=== PATIENT | male | born 1955 | race Caucasian/White ===

== ENCOUNTER 2017-06-02 23:36 | Inpatient (IN) | payer MEDICARE, MEDICAID ==
[~2017-06-02] VITALS: Ht 182.9 cm; Wt 83.5 kg
[2017-06-02] MEDS ORDERED: Cefepime HCl 1 GM in NS 55 ML IV STA (23:40)
[2017-06-02] MEDS ORDERED: Vancomycin 1 GM in NS 275 ML IV ONE (23:45)
[2017-06-02 23:50] VITALS: BP 122/72
[2017-06-02] MEDS ORDERED: DIDANOSINE ORAL (23:53)
[2017-06-02] MEDS ORDERED: FISH OIL CAP1000 MG ORAL (23:53)
[2017-06-03] VITALS (8 sets, daily range): BP systolic 120–144; BP diastolic 76–100
[2017-06-03] MEDS ORDERED: MULTIVITAMINS1 EAC2 ORAL (00:31)
[2017-06-03] MEDS ORDERED: METOPROLOL TART25 MG ORAL (00:31)
[2017-06-03] MEDS ORDERED: CRIXIVAN400 MG ORAL (00:31)
[2017-06-03] MEDS ORDERED: ATORVASTATIN CA80 MG ORAL (00:31)
[2017-06-03] MEDS ORDERED: GERI-TUSSI100 MG/5 M PO (00:31)
[2017-06-03] MEDS ORDERED: KAOPECTATE525 MG/15 PO (00:31)
[2017-06-03] MEDS ORDERED: PERIDEX15 ML MM (00:31)
[2017-06-03] MEDS ORDERED: SINEMET 25-1001 EAC1 ORAL (00:32)
[2017-06-03] MEDS ORDERED: NEVIRAPINE200 MG PO (00:32)
[2017-06-03] MEDS ORDERED: TYLENOL EXTRA500 MG ORAL (00:32)
[2017-06-03] MEDS ORDERED: ZYPREXA5 MG ORAL (00:32)
[2017-06-03 00:36] LABS: BASOPHILS % (AUTO) 0.6 % (0.0-2.0); HEMATOCRIT 55.9 % (42.0-52.0); LYMPHOCYTES % (AUTO) 20.4 % (20.0-45.0); MEAN CORPUSCULAR VOLUME 98 FL (80-99); MONOCYTES % (AUTO) 5.4 % (1.0-10.0); NEUTROPHILS % (AUTO) 72.6 % (45.0-75.0); PLATELET COUNT 205 K/UL (150-450); RED BLOOD COUNT 5.69 M/UL (4.70-6.10); RED CELL DISTRIBUTION WIDTH 11.9 % (11.6-14.8); WHITE BLOOD COUNT 16.3 K/UL (4.8-10.8)
[2017-06-03 00:50] LABS: APPEARANCE,URINE CLEAR; BILIRUBIN, URINE 1+ (NEGATIVE); GLUCOSE, URINE (UA) NEGATIVE (NEGATIVE); KETONES,URINE NEGATIVE (NEGATIVE); LEUKOCYTE ESTERASE ,URINE 1+ (NEGATIVE); NITRITE,URINE NEGATIVE (NEGATIVE); PH,URINE 5 (4.5-8.0); PROTEIN,URINE 2+ (NEGATIVE); UROBILINOGEN,URINE NORMAL MG/DL (0.0-1.0)
[2017-06-03 00:56] LABS: COLOR,URINE YELLOW
[2017-06-03 01:01] LABS: ALANINE AMINOTRANSFERASE 36 U/L (12-78); ALBUMIN 3.5 G/DL (3.4-5.0); ALBUMIN/GLOBULIN RATIO 0.8 (1.0-2.7); ALKALINE PHOSPHATASE 107 U/L (46-116); ANION GAP 16 mmol/L (5-15); ASPARTATE AMINO TRANSFERASE 30 U/L (15-37); BILIRUBIN,TOTAL 0.4 MG/DL (0.2-1.0); BLOOD UREA NITROGEN 39 mg/dL (7-18); CALCIUM 9.9 MG/DL (8.5-10.1); CARBON DIOXIDE 23 MMOL/L (21-32); CHLORIDE 122 MMOL/L (98-107); CREATINE KINASE 409 U/L (26-308); CREATININE 1.7 MG/DL (0.55-1.30); POTASSIUM 3.5 MMOL/L (3.5-5.1); SODIUM 160 MMOL/L (136-145)
[2017-06-03] MEDS ORDERED: Cefepime 1gm vial ONE (01:02)
--- NOTE | 2017-06-03 02:06 | Emergency Room Report ---
History of Present Illness General Chief Complaint: Abnormal Labs Source: Medical Record, EMS Present Illness HPI Patient sent from [facility] for abnormal labs and fever. Given tylenol before transport. Patient does not usually communicate (alleged prior stroke). HIV + on treatment. On Sinemet - Parkinson's. Depression/ psychosis in past. HTN, DM. No other history available. Allergies: Coded Allergies: No Known Allergies (Unverified , 06/02/17) Patient History Limited by: medical condition Past Medical History: see triage record, old chart reviewed Social History: Denies: smoking Social History Narrative [facility] Reviewed Nursing Documentation: PMH: Agreed, PSxH: Agreed Nursing Documentation-PMH Hx Hypertension: Yes - hyperlipidemia Hx Diabetes: Yes - type 2 dm Hx Cerebrovascular Accident: Yes Review of Systems All Other Systems: limited Physical Exam Vital Signs Date Time Temp Pulse Resp B/P (MAP) Pulse Ox O2 Delivery O2 Flow Rate FiO2 06/02/17 23:36 98.8 101 24 113/82 94 Room Air Sp02 EP Interpretation: reviewed, abnormal - low as interpreted by me General Appearance: no apparent distress, Chronically Ill Head: normocephalic Eyes: bilateral eye normal inspection, bilateral eye PERRL ENT: moist mucus membranes - some beige mucoid d/c in mouth and unable to exam fully due to patient fighting Neck: other - generalized stiffness but no clear meningismus Respiratory: lungs clear, normal breath sounds Cardiovascular #1: regular rate, rhythm Cardiovascular #2: 2+ radial (R) Gastrointestinal: normal inspection, normal bowel sounds, non tender, no mass, non-distended Musculoskeletal: back normal, normal range of motion Neurologic: alert, other - ebulic, atrophy bilaterally UE Psychiatric: depressed affect Skin: normal inspection, warm/dry Medical Decision Making Diagnostic Impression: Primary Impression: Fever unknown source Additional Impressions: Leukocytosis Qualified Codes: D72.829 - Elevated white blood cell count, unspecified Renal insufficiency Hypernatremia HIV (human immunodeficiency virus infection) ER Course Patient sent for fever. DDx: sepsis, UTI, pneumonia, oral source amongst others. Allegedly on treatment for HIV. Broad differential. Evaluation with BC, lactate, EKG, labs, CXR. Treated with IV hydration and antibiotics. Very complicated patient needing extensive work up and evaluation. Labs with leukocytosis. CXR L effusion. EKG without injury pattern. Renal insufficiency. Hypernatremia. Somewhat improved. Source of infection not clear. Admit Dr. Gonzalez (cares for Dr. Gill's patients). Laboratory Tests Test 06/03/17 00:09 White Blood Count 16.3 K/UL (4.8-10.8) H Red Blood Count 5.69 M/UL (4.70-6.10) Hemoglobin 18.0 G/DL (14.2-18.0) Hematocrit 55.9 % (42.0-52.0) H Mean Corpuscular Volume 98 FL (80-99) Mean Corpuscular Hemoglobin 32.8 PG (27.0-31.0) H Mean Corpuscular Hemoglobin Concent 33.4 G/DL (32.0-36.0) Red Cell Distribution Width 11.9 % (11.6-14.8) Platelet Count 205 K/UL (150-450) Mean Platelet Volume 6.8 FL (6.5-10.1) Neutrophils (%) (Auto) 72.6 % (45.0-75.0) Lymphocytes (%) (Auto) 20.4 % (20.0-45.0) Monocytes (%) (Auto) 5.4 % (1.0-10.0) Eosinophils (%) (Auto) 1.0 % (0.0-3.0) Basophils (%) (Auto) 0.6 % (0.0-2.0) Prothrombin Time 10.4 SEC (9.30-11.50) Prothrombin Time INR 1.0 (0.9-1.1) PTT 27 SEC (23-33) Urine Color Yellow Urine Appearance Clear Urine pH 5 (4.5-8.0) Urine Specific [place] 1.025 (1.005-1.035) Urine Protein 2+ (NEGATIVE) H Urine Glucose (UA) Negative (NEGATIVE) Urine Ketones Negative (NEGATIVE) Urine Occult Blood 2+ (NEGATIVE) H Urine Nitrite Negative (NEGATIVE) Urine Bilirubin 1+ (NEGATIVE) H Urine Ictotest Negative Urine Urobilinogen Normal MG/DL (0.0-1.0) Urine Leukocyte Esterase 1+ (NEGATIVE) H Urine RBC 2-4 /HPF (0 - 0) H Urine WBC 2-4 /HPF (0 - 0) Urine Squamous Epithelial Cells Few /LPF (NONE/OCC) Urine Bacteria Few /HPF (NONE) Sodium Level 160 MMOL/L (136-145) H Potassium Level 3.5 MMOL/L (3.5-5.1) Chloride Level 122 MMOL/L (98-107) H Carbon Dioxide Level 23 MMOL/L (21-32) Anion Gap 16 mmol/L (5-15) H Blood Urea Nitrogen 39 mg/dL (7-18) H Creatinine 1.7 MG/DL (0.55-1.30) H Estimate Glomerular Filtration Rate 40.8 mL/min (>60) Glucose Level 140 MG/DL (74-106) H Lactic Acid Level 1.70 mmol/L (0.66-2.22) Calcium Level 9.9 MG/DL (8.5-10.1) Total Bilirubin 0.4 MG/DL (0.2-1.0) Aspartate Amino Transferase (AST) 30 U/L (15-37) Alanine Aminotransferase (ALT) 36 U/L (12-78) Alkaline Phosphatase 107 U/L (46-116) Total Creatine Kinase 409 U/L (26-308) H Troponin I 0.000 ng/mL (0.000-0.056) Pro-B-Type Natriuretic Peptide 22 pg/mL (0-125) Total Protein 8.0 G/DL (6.4-8.2) Albumin 3.5 G/DL (3.4-5.0) Globulin 4.5 g/dL Albumin/Globulin Ratio 0.8 (1.0-2.7) L Lipase 186 U/L (73-393) EKG Diagnostic Results Rate: normal Rhythm: NSR ST Segments: no acute changes Rhythm Strip Diag. Results EP Interpretation: yes Rhythm: NSR, no PVC's, no ectopy Chest X-Ray Diagnostic Results Chest X-Ray Diagnostic Results : Chest X-Ray Ordered: Yes # of Views/Limited/Complete: 1 View Indication: Other Interpretation: no consolidation, no pneumothorax, other - L effusion Impression: Other Electronically Signed by: Rob Meier MD Last Vital Signs Date Time Temp Pulse Resp B/P (MAP) Pulse Ox O2 Delivery O2 Flow Rate FiO2 06/03/17 11:20 95 142/97 06/03/17 08:00 98.7 18 99 Room Air Status: improved Disposition: ADMITTED INPATIENT Condition: Serious Referrals: JACQUES VASQUEZ (PCP) Rob Meier M.D. Jun 03, 2017 02:06
[2017-06-03] MEDS ORDERED: Vancomycin 1gm inj IVPB ONE (02:43)
[2017-06-03] MEDS ORDERED: cefTRIAXone 1 GM in D5W 55 ML IVPB SCH (05:45)
[2017-06-03] MEDS ORDERED: guaiFENesin 100mg/5ml Liq ud ORAL PRN (05:45)
[2017-06-03] MEDS ORDERED: Acetaminophen 500mg (ES) tab ORAL PRN (05:45)
--- NOTE | 2017-06-03 06:31 | History and Physical Report ---
DATE OF ADMISSION: 06/03/2017 CHIEF COMPLAINT: Dehydration, hyponatremia, and leukocytosis. HISTORY OF PRESENT ILLNESS: The patient is a 62-year-old male. He has a history of human immunodeficiency virus, diabetes, essential hypertension, dementia, and history of psychosis. He was transferred from a correction facility with complaints of leukocytosis. On evaluation in the emergency room, the patient was noted to have a sodium of 160 and a white count of 16,000. He also had an elevated BUN and creatinine. The patient is unable to provide any history. He is mostly nonverbal at baseline. He was pancultured. He has been started on antibiotic therapy for possible sepsis. He is now admitted for further evaluation and care. PAST MEDICAL HISTORY: As above. PAST SURGICAL HISTORY: Unknown. CURRENT MEDICATIONS: Reconciled and reviewed. ALLERGIES: None. FAMILY HISTORY: Unknown. SOCIAL HISTORY: There is no known history of tobacco, ethanol, or drugs. The patient has an advance directive for Do Not Resuscitate. PHYSICAL EXAMINATION: VITAL SIGNS: Temperature 99.5, pulse 94, and blood pressure 122/72. GENERAL: The patient is a well-developed male, in no apparent distress. He is awake, but nonverbal. Does not follow commands. NECK: Supple. There is no lymphadenopathy. No jugular venous distention. HEART: Regular rate and rhythm. LUNGS: Clear to auscultation bilaterally. ABDOMEN: Soft, nontender, and nondistended. EXTREMITIES: Without clubbing, cyanosis, or edema. There is no rash noted. LABORATORY DATA: Show sodium 160, potassium 3.5, chloride 122, bicarbonate 23, BUN 39, and creatinine 1.7. White count 16,000, hemoglobin 18, and hematocrit 55. Coags are normal. UA was clear. Chest x-ray report was negative. ASSESSMENT: This is a pleasant unfortunate male admitted with complaints of dehydration, hyponatremia, leukocytosis rule out sepsis, and acute renal failure. He has a history of human immunodeficiency virus, hypertension, and diabetes. PLAN: IV hydration. Hypotonic fluids. Empiric antibiotic therapy. We will monitor CBC and renal function and electrolytes. Continue outpatient human immunodeficiency virus regimen. ID consultation will be obtained. Deandre Gonzalez M.D. DR: DARRYL JOB#: [id number] CC:
[2017-06-03] MEDS: Heparin 5000 units/ml inj SUBQ SCH ×2 (08:32→20:10)
[2017-06-03] MEDS: OLANZapine 2.5mg tab ORAL SCH ×2 (09:00→11:20)
[2017-06-03] MEDS: Metoprolol 25mg tab ORAL SCH ×3 (09:00→20:08)
--- NOTE | 2017-06-03 11:07 | Diagnostic Imaging Report ---
Indication: Cough Comparison: None A single view chest radiograph was obtained. Findings: Lung volumes are low but lungs are essentially clear. Heart a left lung apex is obscured. The heart is normal in size. Exam limited by rotation. Impression: No acute disease with limitations as described above
[2017-06-03] MEDS: Sinemet 25/100 tab ORAL SCH ×2 (11:20→18:23)
--- NOTE | 2017-06-03 11:57 | Diagnostic Imaging Report ---
APPROVED REPORT CPT Code: 14510 Present Symptoms Shortness of breath BILATERAL: Imaging reveals a patent deep venous system bilaterally. There is no evidence of thrombus within the femoral, popliteal or tibial segments. The greater saphenous veins are also within normal limits. Doppler indicates normal spontaneous flow within these segments.
--- NOTE | 2017-06-03 11:57 | Diagnostic Imaging Report ---
APPROVED REPORT CPT Code: 33143 Present Symptoms Shortness of breath BILATERAL: Imaging reveals a patent deep venous system bilaterally. There is no evidence of thrombus within the femoral, popliteal or tibial segments. The greater saphenous veins are also within normal limits. Doppler indicates normal spontaneous flow within these segments.
--- NOTE | 2017-06-03 11:57 | Diagnostic Imaging Report ---
APPROVED REPORT CPT Code: 61132 Present Symptoms Shortness of breath BILATERAL: Imaging reveals a patent deep venous system bilaterally. There is no evidence of thrombus within the femoral, popliteal or tibial segments. The greater saphenous veins are also within normal limits. Doppler indicates normal spontaneous flow within these segments.
--- NOTE | 2017-06-03 14:22 | Infectious Diseases Prog Note ---
Assessment/Plan Assessment/Plan Full consult dictated: A) 1) sepsis, ? asp pna/hcap pna, leukocytosis, fevers, michael, dehydration, hypernatremia 2) hiv, ? cd4/vl 3) Parkinson's, dysphagia, dementia, htn, psychosis, aphasia, dm, depression , hyperlipidemia 4) aspiration risk 5) allergies - nka, sh-negative, mar noted, notes and records reviewed 6) d/w RN P) 1) vancomycin, zosyn 2) check cultures, labs, chest x-ray, cd4 3) anti-retrovirals - indinavir, ddi, nevirapine when all available 4) continue treatment per primary and consultants 5) orders entered and noted 6) thank you Subjective Allergies: Coded Allergies: No Known Allergies (Unverified , 06/02/17) Objective Vital Signs Last 24 Hour Vital Signs Date Time Temp Pulse Resp B/P (MAP) Pulse Ox O2 Delivery O2 Flow Rate FiO2 06/03/17 11:20 95 142/97 06/03/17 08:00 98.7 95 18 142/97 99 Room Air 06/03/17 05:46 98.1 96 20 144/98 93 Room Air 06/03/17 03:36 97.1 105 20 135/100 96 Room Air 06/03/17 03:10 98.6 94 20 125/76 99 Room Air 06/03/17 02:50 98.6 94 20 125/76 99 Room Air 06/03/17 02:15 98.7 88 18 126/78 98 Room Air 06/02/17 23:50 99.5 94 19 122/72 97 Room Air 06/02/17 23:36 98.8 101 24 113/82 94 Room Air Height (Feet): 6 Height (Inches): 0.00 Weight (Pounds): 184 Laboratory Tests Test 06/03/17 00:09 White Blood Count 16.3 K/UL (4.8-10.8) H Red Blood Count 5.69 M/UL (4.70-6.10) Hemoglobin 18.0 G/DL (14.2-18.0) Hematocrit 55.9 % (42.0-52.0) H Mean Corpuscular Volume 98 FL (80-99) Mean Corpuscular Hemoglobin 32.8 PG (27.0-31.0) H Mean Corpuscular Hemoglobin Concent 33.4 G/DL (32.0-36.0) Red Cell Distribution Width 11.9 % (11.6-14.8) Platelet Count 205 K/UL (150-450) Mean Platelet Volume 6.8 FL (6.5-10.1) Neutrophils (%) (Auto) 72.6 % (45.0-75.0) Lymphocytes (%) (Auto) 20.4 % (20.0-45.0) Monocytes (%) (Auto) 5.4 % (1.0-10.0) Eosinophils (%) (Auto) 1.0 % (0.0-3.0) Basophils (%) (Auto) 0.6 % (0.0-2.0) Prothrombin Time 10.4 SEC (9.30-11.50) Prothromb Time International Ratio 1.0 (0.9-1.1) Activated Partial Thromboplast Time 27 SEC (23-33) Urine Color Yellow Urine Appearance Clear Urine pH 5 (4.5-8.0) Urine Specific [place] 1.025 (1.005-1.035) Urine Protein 2+ (NEGATIVE) H Urine Glucose (UA) Negative (NEGATIVE) Urine Ketones Negative (NEGATIVE) Urine Occult Blood 2+ (NEGATIVE) H Urine Nitrite Negative (NEGATIVE) Urine Bilirubin 1+ (NEGATIVE) H Urine Ictotest Negative Urine Urobilinogen Normal MG/DL (0.0-1.0) Urine Leukocyte Esterase 1+ (NEGATIVE) H Urine RBC 2-4 /HPF (0 - 0) H Urine WBC 2-4 /HPF (0 - 0) Urine Squamous Epithelial Cells Few /LPF (NONE/OCC) Urine Bacteria Few /HPF (NONE) Sodium Level 160 MMOL/L (136-145) H Potassium Level 3.5 MMOL/L (3.5-5.1) Chloride Level 122 MMOL/L (98-107) H Carbon Dioxide Level 23 MMOL/L (21-32) Anion Gap 16 mmol/L (5-15) H Blood Urea Nitrogen 39 mg/dL (7-18) H Creatinine 1.7 MG/DL (0.55-1.30) H Estimat Glomerular Filtration Rate 40.8 mL/min (>60) Glucose Level 140 MG/DL (74-106) H Lactic Acid Level 1.70 mmol/L (0.66-2.22) Calcium Level 9.9 MG/DL (8.5-10.1) Total Bilirubin 0.4 MG/DL (0.2-1.0) Aspartate Amino Transf (AST/SGOT) 30 U/L (15-37) Alanine Aminotransferase (ALT/SGPT) 36 U/L (12-78) Alkaline Phosphatase 107 U/L (46-116) Total Creatine Kinase 409 U/L (26-308) H Troponin I 0.000 ng/mL (0.000-0.056) Pro-B-Type Natriuretic Peptide 22 pg/mL (0-125) Total Protein 8.0 G/DL (6.4-8.2) Albumin 3.5 G/DL (3.4-5.0) Globulin 4.5 g/dL Albumin/Globulin Ratio 0.8 (1.0-2.7) L Lipase 186 U/L (73-393) Current Medications Medications (Trade) Dose Ordered Sig/Kelly Route PRN Reason Start Time Stop Time Status Last Admin Dose Admin Acetaminophen (Tylenol) 500 mg Q4HR PRN ORAL Mild Pain (Pain Scale 1-3) 06/03/17 05:45 07/03/17 05:44 Atorvastatin Calcium (Lipitor) 80 mg BEDTIME ORAL 06/03/17 21:00 07/03/17 20:59 Carbidopa/Levodopa (Sinemet 25/100) 1 ea THREE TIMES A DAY ORAL 06/03/17 13:00 07/03/17 12:59 06/03/17 11:20 Dextrose 1,000 ml @ 75 mls/hr [id number] IV 06/03/17 05:45 07/03/17 05:44 06/03/17 06:23 Guaifenesin (Robitussin) 10 mg TIDPRN PRN ORAL For Cough 06/03/17 05:45 07/03/17 05:44 Heparin Sodium (Porcine) (Heparin 5000 units/ml) 5,000 units EVERY 12 HOURS SUBQ 06/03/17 09:00 07/03/17 08:59 06/03/17 08:32 Metoprolol Tartrate (Lopressor) 25 mg EVERY 12 HOURS ORAL 06/03/17 09:00 07/03/17 08:59 06/03/17 11:20 Multivitamins (Multivitamins) 1 tab DAILY ORAL 06/03/17 09:00 07/03/17 08:59 06/03/17 11:21 Nevirapine (Viramune) 200 mg BID ORAL 06/03/17 18:00 07/03/17 17:59 UNV Olanzapine (ZyPREXA) 5 mg DAILY ORAL 06/03/17 09:00 07/03/17 08:59 06/03/17 11:20 Piperacillin Sod/ Tazobactam Sod 3.375 gm/Dextrose 100 ml @ 25 mls/hr EVERY 8 HOURS IVPB 06/03/17 22:00 06/08/17 21:59 UNV Vancomycin HCl (Vanco rx to dose) 1 ea DAILY PRN MISC Per rx protocol 06/03/17 14:15 07/03/17 14:14 UNV GENE ALBERT Jun 03, 2017 14:22
[2017-06-03 14:44] LABS: BASOPHILS % (AUTO) 0.6 % (0.0-2.0); EOSINOPHILS % (AUTO) 0.9 % (0.0-3.0); HEMATOCRIT 49.4 % (42.0-52.0); HEMOGLOBIN 16.1 G/DL (14.2-18.0); LYMPHOCYTES % (AUTO) 18.4 % (20.0-45.0); MEAN CORPUSCULAR VOLUME 100 FL (80-99); MONOCYTES % (AUTO) 5.3 % (1.0-10.0); NEUTROPHILS % (AUTO) 74.7 % (45.0-75.0); PLATELET COUNT 175 K/UL (150-450); RED BLOOD COUNT 4.94 M/UL (4.70-6.10); RED CELL DISTRIBUTION WIDTH 11.8 % (11.6-14.8); WHITE BLOOD COUNT 11.6 K/UL (4.8-10.8)
[2017-06-03 14:49] LABS: ALANINE AMINOTRANSFERASE 15 U/L (12-78); ALBUMIN/GLOBULIN RATIO 0.7 (1.0-2.7); ALKALINE PHOSPHATASE 97 U/L (46-116); ANION GAP 14 mmol/L (5-15); ASPARTATE AMINO TRANSFERASE 41 U/L (15-37); BILIRUBIN,TOTAL 0.4 MG/DL (0.2-1.0); BLOOD UREA NITROGEN 35 mg/dL (7-18); CALCIUM 9.3 MG/DL (8.5-10.1); CARBON DIOXIDE 22 MMOL/L (21-32); CHLORIDE 122 MMOL/L (98-107); CREATININE 1.4 MG/DL (0.55-1.30); POTASSIUM 3.6 MMOL/L (3.5-5.1); SODIUM 158 MMOL/L (136-145)
[2017-06-03] MEDS: Zosyn 3.375gm q8h **Extended infusion IVPB SCH ×2 (15:21→20:18)
--- NOTE | 2017-06-03 15:30 | Cardiology Report ---
APPROVED REPORT EKG Measurement Heart [id number] 142P64 [id number] Normal sinus rhythm Left axis deviation Abnormal ECG
--- NOTE | 2017-06-03 15:30 | Cardiology Report ---
APPROVED REPORT EKG Measurement Heart [id number] [place] 142P64 [id number] Normal sinus rhythm Left axis deviation Abnormal ECG
--- NOTE | 2017-06-03 15:30 | Cardiology Report ---
APPROVED REPORT EKG Measurement Heart [id number] [place] 142P64 [id number] Normal sinus rhythm Left axis deviation Abnormal ECG
[2017-06-03] MEDS ORDERED: Nevirapine 200mg Tab ORAL SCH (18:00)
[2017-06-03] MEDS: Atorvastatin 80mg tab ORAL SCH (20:07)
[2017-06-03] MEDS: Vancomycin 1250mg/D5W 250ml IVPB SCH (20:11)
--- NOTE | 2017-06-03 23:15 | Consultation ---
DATE OF CONSULTATION: 06/03/2017 INFECTIOUS DISEASE CONSULTATION CONSULTING PHYSICIAN: Arnold Alvarez M.D. ATTENDING PHYSICIAN: Deandre Gonzalez M.D. REASON FOR CONSULTATION: Sepsis, HIV, fevers, and leukocytosis. CHIEF COMPLAINT: The patient's chief complaint coming in to the hospital is altered mental status, sepsis, fevers, and leukocytosis. HISTORY OF PRESENT ILLNESS: This is a 62-year-old male with a history of HIV with unclear T-cell count at this time. The patient has a history of multiple medical problems and is at risk for aspiration pneumonia. The patient presents to [facility] with altered mental status, fevers, and leukocytosis. The patient is likely septic with SIRS criteria. Infectious Disease consultation was requested. The patient was placed on broad-spectrum antibiotics, vancomycin and Zosyn. The patient is at high risk for aspiration and healthcare-acquired pneumonia. Initial chest x-ray was negative. Urinalysis was unremarkable for UTI with only 2 to 4 white blood cells. White count was elevated at 16.3 and the patient has had fevers and tachycardia. MAR was noted. Orders were noted. Notes and records were reviewed. PAST MEDICAL HISTORY: The patient's past medical history is obtained from the records. The patient has a past medical history of HIV, unclear T-cell viral load. He has a history of Parkinson, dysphagia, dementia, hypertension, psychosis, aphasia, diabetes, depression, hyperlipidemia, and history of aspiration risk. MEDICATIONS: Upon reviewing the MAR, he is on the following medications. With regards to antiretrovirals, he is on Viramune, he is on indinavir, and he is on DDI or didanosine. He is currently also on Lipitor, Zosyn, and vancomycin. He is on carbidopa or Sinemet. He is on multivitamins, Lopressor, Zyprexa, heparin, Tylenol, Robitussin, and IV fluids. ALLERGIES: No known drug allergies. No antibiotic allergies. SOCIAL HISTORY: Per the records is negative for smoking, alcohol, or drug abuse. FAMILY HISTORY: Noncontributory. Negative for exposure to tuberculosis or cancer per the records. REVIEW OF SYSTEMS: CONSTITUTIONAL: He has low-grade temperatures. He has generalized weakness and fevers. No chills. HEAD AND NECK: No head pain or neck pain. GASTROINTESTINAL: No nausea, vomiting, or diarrhea. GENITOURINARY: No Orta. PULMONARY: Mild congestion noted. No significant secretions or hemoptysis. CARDIAC: No pressors or chest pain. SKIN: No rash or itching. EXTREMITIES: No extremity pain. NEUROLOGIC: No seizures. PHYSICAL EXAMINATION: GENERAL: Arousable and alert. Mild congestion noted with no significant secretions or hemoptysis. He is in some distress, but nothing significant. He is responsive to certain extent. VITAL SIGNS: Vital signs are as follows: Temperature is 98.7 degrees, pulse rate 95, respiratory rate 18, blood pressure 142/97, and saturation 99% on room air. T-max is 99.5 degrees. Maximum pulse was 105. Maximum respiratory rate was 24. HEAD AND NECK: Oral exam, no thrush. Eye exam, no icterus. Normocephalic. No facial droop. NECK: Supple. HEART: Regular. No gallop or murmur. No friction rub. LUNGS: Few bilateral rhonchi. Positive rales. ABDOMEN: Soft. Positive bowel sounds. Nontender. SKIN: No rash or dermatitis. MUSCULOSKELETAL: No effusion. Legs are without cellulitis. PERIPHERAL VASCULAR: No cyanosis or gangrene. RECTAL: Deferred. GENITOURINARY: No Orta. LINES: Line sites without phlebitis. NEUROLOGIC: Generalized weakness and responsive. Possible tremor noted. LABORATORY DATA: Laboratory data is as follows. White count 16.3 and hemoglobin 18.0. Creatinine is 1.7. Sodium 160. CK 409. Chest x-ray initially was negative. Followup chest x-ray has been ordered. Cultures are pending. UA with 2 to 4 white blood cells. Chest x-ray was noted and reviewed. ASSESSMENT AND PLAN: 1. The patient likely has sepsis, leukocytosis, fevers, acute kidney injury, dehydration, and hypernatremia. He has systemic inflammatory response syndrome criteria. The patient is at high risk for aspiration and healthcare-acquired pneumonia. We will continue with Zosyn and vancomycin, broad-spectrum antibiotics to cover methicillin-resistant Staphylococcus aureus and gram negatives. Check cultures, labs, and followup chest x-ray. Continue treatment for sepsis, possible pneumonia, and leukocytosis. Continue vancomycin and Zosyn for now. 2. Human immunodeficiency virus. Check CD4 and viral load. We will restart antiretrovirals, which include Viramune, indinavir, and didanosine or DDI. Once all 3 medications are available, I would not start just one medication because this might promote resistance. Check CD4 count. 3. Parkinson. 4. Dysphagia. 5. Dementia. 6. Hypertension. 7. Psychosis. 8. Aphasia. 9. Diabetes. 10. Depression. 11. Hyperlipidemia. 12. Aspiration risk. 13. Hypernatremia. 14. Acute kidney injury. 15. Dehydration. 16. Continue treatment per primary consultants. 17. Allergies are negative. 18. MAR was noted. 19. Case was discussed with RN. 20. Social history is negative. 21. Family history is noncontributory. 22. Skin care protocol. 23. Notes and records were noted. Arnold Alvarez M.D. DR: CORNELIO JOB#: [id number] CC:
[2017-06-04 00:17] VITALS: BP 122/87
--- NOTE | 2017-06-04 03:00 | Consultation ---
DATE OF CONSULTATION: 06/03/2017 CARDIOLOGY CONSULTATION CONSULTING PHYSICIAN: Rob Villalpando M.D. REQUESTING PHYSICIAN: Deandre Gonzalez M.D. REASON FOR CONSULTATION: Tachycardia, dehydration, and hypernatremia. HISTORY OF PRESENT ILLNESS: This is a 62-year-old male, resides at a long-term facility. He has a history of hypertensive heart disease. He was noted to have several abnormal laboratory studies and was reportedly withdrawn and lethargic. He was transported to the emergency room for evaluation and assessment. I have been asked to assist with cardiovascular management including management of volume status. PAST MEDICAL HISTORY: HIV/AIDS, [id number] diabetes mellitus, hypertension, cerebrovascular disease with dementia and psychosis, and Parkinson disease. MEDICATIONS: Prior to admission, reviewed and reconciled. ALLERGIES: None known. SOCIAL HISTORY: No record of smoking, alcohol, or substance abuse. FAMILY HISTORY: Noncontributory. REVIEW OF SYSTEMS: Cannot be reliably obtained from the patient. PHYSICAL EXAMINATION: VITAL SIGNS: Vitals in the emergency room, blood pressure 115/82, pulse 101, respirations 24, and afebrile. Subsequently, blood pressure 135/100, pulse 105, respirations 20, and afebrile. HEENT: Oropharynx clear with dry mucous membranes. NECK: Supple. Jugular venous pressure normal. LUNGS: Clear. CARDIAC: Regular rhythm and rapid rate. Normal S1 and S2 with a fourth heart sound. ABDOMEN: Soft and nontender. EXTREMITIES: No edema. NEUROLOGIC: Tremors noted. LABORATORY DATA: White count on admission 16.3, now 11.6; hemoglobin 16.1, and MCV 100. Sodium 158, potassium 3.6, chloride 122, BUN 35, and creatinine 1.4. Albumin 3. Lactic acid 1.7. IMPRESSION: 1. Severe dehydration. 2. Hypernatremia. 3. Hyperchloremia. 4. Acute renal failure with prerenal azotemia due to acute tubular necrosis. 5. Rhabdomyolysis with elevated creatine kinase. 6. Human immunodeficiency virus/acquired immunodeficiency syndrome. 7. Parkinson's disease. 8. Secondary sinus tachycardia. 9. Hypertension with elevated blood pressure. PLAN: 1. Volume resuscitation. 2. Isotonic fluids until euvolemic then hypotonic. 3. Empiric antibiotics. 4. DVT prophylaxis. 5. Monitor clinical parameters. 6. Antipyretics as needed. 7. Monitor volume status. 8. Continue beta-tania for blood pressure management. 9. Avoid tight blood pressure control in this clinical setting until the patient is rehydrated and euvolemic. Rob Villalpando M.D. DR: CHANTELLE JOB#: [id number] CC:
--- NOTE | 2017-06-04 03:00 | Consultation ---
DATE OF CONSULTATION: 06/03/2017 CARDIOLOGY CONSULTATION CONSULTING PHYSICIAN: Rob Villalpando M.D. REQUESTING PHYSICIAN: Deandre Gonzalez M.D. REASON FOR CONSULTATION: Tachycardia, dehydration, and hypernatremia. HISTORY OF PRESENT ILLNESS: This is a 62-year-old male, resides at a halfway facility. He has a history of hypertensive heart disease. He was noted to have several abnormal laboratory studies and was reportedly withdrawn and lethargic. He was transported to the emergency room for evaluation and assessment. I have been asked to assist with cardiovascular management including management of volume status. PAST MEDICAL HISTORY: HIV/AIDS, lgw-sicbflh-ulffzqmyo diabetes mellitus, hypertension, cerebrovascular disease with dementia and psychosis, and Parkinson disease. MEDICATIONS: Prior to admission, reviewed and reconciled. ALLERGIES: None known. SOCIAL HISTORY: No record of smoking, alcohol, or substance abuse. FAMILY HISTORY: Noncontributory. REVIEW OF SYSTEMS: Cannot be reliably obtained from the patient. PHYSICAL EXAMINATION: VITAL SIGNS: Vitals in the emergency room, blood pressure 115/82, pulse 101, respirations 24, and afebrile. Subsequently, blood pressure 135/100, pulse 105, respirations 20, and afebrile. HEENT: Oropharynx clear with dry mucous membranes. NECK: Supple. Jugular venous pressure normal. LUNGS: Clear. CARDIAC: Regular rhythm and rapid rate. Normal S1 and S2 with a fourth heart sound. ABDOMEN: Soft and nontender. EXTREMITIES: No edema. NEUROLOGIC: Tremors noted. LABORATORY DATA: White count on admission 16.3, now 11.6; hemoglobin 16.1, and MCV 100. Sodium 158, potassium 3.6, chloride 122, BUN 35, and creatinine 1.4. Albumin 3. Lactic acid 1.7. IMPRESSION: 1. Severe dehydration. 2. Hypernatremia. 3. Hyperchloremia. 4. Acute renal failure with prerenal azotemia due to acute tubular necrosis. 5. Rhabdomyolysis with elevated creatine kinase. 6. Human immunodeficiency virus/acquired immunodeficiency syndrome. 7. Parkinson's disease. 8. Secondary sinus tachycardia. 9. Hypertension with elevated blood pressure. PLAN: 1. Volume resuscitation. 2. Isotonic fluids until euvolemic then hypotonic. 3. Empiric antibiotics. 4. DVT prophylaxis. 5. Monitor clinical parameters. 6. Antipyretics as needed. 7. Monitor volume status. 8. Continue beta-tania for blood pressure management. 9. Avoid tight blood pressure control in this clinical setting until the patient is rehydrated and euvolemic. Rob Villalpando M.D. DR: CHANTELLE JOB#: [id number] CC:
--- NOTE | 2017-06-04 03:00 | Consultation ---
DATE OF CONSULTATION: 06/03/2017 CARDIOLOGY CONSULTATION CONSULTING PHYSICIAN: Rob Villalpando M.D. REQUESTING PHYSICIAN: Deandre Gonzalez M.D. REASON FOR CONSULTATION: Tachycardia, dehydration, and hypernatremia. HISTORY OF PRESENT ILLNESS: This is a 62-year-old male, resides at a long term facility. He has a history of hypertensive heart disease. He was noted to have several abnormal laboratory studies and was reportedly withdrawn and lethargic. He was transported to the emergency room for evaluation and assessment. I have been asked to assist with cardiovascular management including management of volume status. PAST MEDICAL HISTORY: HIV/AIDS, vju-jszdyym-oifkjusrz diabetes mellitus, hypertension, cerebrovascular disease with dementia and psychosis, and Parkinson disease. MEDICATIONS: Prior to admission, reviewed and reconciled. ALLERGIES: None known. SOCIAL HISTORY: No record of smoking, alcohol, or substance abuse. FAMILY HISTORY: Noncontributory. REVIEW OF SYSTEMS: Cannot be reliably obtained from the patient. PHYSICAL EXAMINATION: VITAL SIGNS: Vitals in the emergency room, blood pressure 115/82, pulse 101, respirations 24, and afebrile. Subsequently, blood pressure 135/100, pulse 105, respirations 20, and afebrile. HEENT: Oropharynx clear with dry mucous membranes. NECK: Supple. Jugular venous pressure normal. LUNGS: Clear. CARDIAC: Regular rhythm and rapid rate. Normal S1 and S2 with a fourth heart sound. ABDOMEN: Soft and nontender. EXTREMITIES: No edema. NEUROLOGIC: Tremors noted. LABORATORY DATA: White count on admission 16.3, now 11.6; hemoglobin 16.1, and MCV 100. Sodium 158, potassium 3.6, chloride 122, BUN 35, and creatinine 1.4. Albumin 3. Lactic acid 1.7. IMPRESSION: 1. Severe dehydration. 2. Hypernatremia. 3. Hyperchloremia. 4. Acute renal failure with prerenal azotemia due to acute tubular necrosis. 5. Rhabdomyolysis with elevated creatine kinase. 6. Human immunodeficiency virus/acquired immunodeficiency syndrome. 7. Parkinson's disease. 8. Secondary sinus tachycardia. 9. Hypertension with elevated blood pressure. PLAN: 1. Volume resuscitation. 2. Isotonic fluids until euvolemic then hypotonic. 3. Empiric antibiotics. 4. DVT prophylaxis. 5. Monitor clinical parameters. 6. Antipyretics as needed. 7. Monitor volume status. 8. Continue beta-tania for blood pressure management. 9. Avoid tight blood pressure control in this clinical setting until the patient is rehydrated and euvolemic. Rob Villalpando M.D. DR: CHANTELLE JOB#: [id number] CC:
[2017-06-04 04:29] VITALS: BP 117/89
[2017-06-04] MEDS: Zosyn 3.375gm q8h **Extended infusion IVPB SCH ×3 (05:30→23:01)
[2017-06-04 06:29] LABS: BASOPHILS % (AUTO) 0.5 % (0.0-2.0); EOSINOPHILS % (AUTO) 1.8 % (0.0-3.0); HEMATOCRIT 50.7 % (42.0-52.0); HEMOGLOBIN 17.5 G/DL (14.2-18.0); LYMPHOCYTES % (AUTO) 23.4 % (20.0-45.0); MEAN CORPUSCULAR VOLUME 100 FL (80-99); MONOCYTES % (AUTO) 5.2 % (1.0-10.0); NEUTROPHILS % (AUTO) 69.2 % (45.0-75.0); PLATELET COUNT 160 K/UL (150-450); RED BLOOD COUNT 5.08 M/UL (4.70-6.10); RED CELL DISTRIBUTION WIDTH 11.9 % (11.6-14.8); WHITE BLOOD COUNT 11.5 K/UL (4.8-10.8)
[2017-06-04 07:10] LABS: ANION GAP 14 mmol/L (5-15); BLOOD UREA NITROGEN 31 mg/dL (7-18); CALCIUM 9.5 MG/DL (8.5-10.1); CARBON DIOXIDE 24 MMOL/L (21-32); CHLORIDE 121 MMOL/L (98-107); CREATININE 1.4 MG/DL (0.55-1.30); POTASSIUM 3.6 MMOL/L (3.5-5.1); SODIUM 159 MMOL/L (136-145)
[2017-06-04 08:00] VITALS: BP 132/92
[2017-06-04] MEDS: Heparin 5000 units/ml inj SUBQ SCH ×2 (08:40→21:21)
[2017-06-04] MEDS: OLANZapine 2.5mg tab ORAL SCH (08:44)
[2017-06-04] MEDS: Sinemet 25/100 tab ORAL SCH ×3 (08:44→17:11)
[2017-06-04] MEDS: Metoprolol 25mg tab ORAL SCH ×3 (08:44→21:18)
--- NOTE | 2017-06-04 10:08 | Diagnostic Imaging Report ---
Indication: Shortness of breath Technique: One view of the chest Comparison: 06/03/2017 Findings: Patient's chin obscures the upper mediastinum and medial lung apices. The lungs and pleural spaces are clear. The heart size is normal. There is a right clavicular fracture deformity again demonstrated. Contrast from recent video swallowing study is seen within the colon. Findings are otherwise unchanged Impression: No acute process
[2017-06-04 12:00] VITALS: BP 128/96
--- NOTE | 2017-06-04 12:06 | General Progress Note ---
Assessment/Plan Problem List: (1) Hypernatremia ICD Codes: E87.0 - Hyperosmolality and hypernatremia SNOMED: 87872668 (2) Leukocytosis ICD Codes: D72.829 - Elevated white blood cell count, unspecified SNOMED: 535077889, 662627413 (3) Renal insufficiency ICD Codes: N28.9 - Disorder of kidney and ureter, unspecified SNOMED: 987748189, 199054451 (4) HIV (human immunodeficiency virus infection) ICD Codes: B20 - Human immunodeficiency virus [HIV] disease SNOMED: 80451212 Status: stable, progressing Assessment/Plan ivf increased abx per id psych eval resp care monitor labs Subjective ROS Limited/Unobtainable: Yes Constitutional: Reports: malaise, weakness HEENT: Reports: no symptoms Cardiovascular: Reports: no symptoms Respiratory: Reports: cough Gastrointestinal/Abdominal: Reports: poor appetite Genitourinary: Reports: no symptoms Neurologic/Psychiatric: Reports: emotional problems, pre-existing deficit Endocrine: Reports: no symptoms Hematologic/Lymphatic: Reports: anemia Allergies: Coded Allergies: No Known Allergies (Unverified , 06/02/17) All Systems: reviewed and negative except above Subjective no events. intermittent agitation. aggressive at times. labs not better despite ivf Objective Last 24 Hour Vital Signs Date Time Temp Pulse Resp B/P (MAP) Pulse Ox O2 Delivery O2 Flow Rate FiO2 06/04/17 08:44 82 132/72 06/04/17 08:00 97.9 86 17 132/92 98 Room Air 06/04/17 04:29 97.4 90 20 117/89 94 Room Air 06/04/17 00:17 98.6 88 19 122/87 94 Room Air 06/03/17 20:19 98.8 100 20 120/83 94 Room Air 06/03/17 20:08 65 120/83 06/03/17 16:00 97.2 94 19 125/90 94 Room Air 06/03/17 12:30 97.2 95 20 122/89 95 Room Air Intake and Output 06/04/17 06/05/17 19:00 07:00 Intake Total 112.5 ml Balance 112.5 ml IV Total 112.5 ml Laboratory Tests 06/03/17 14:00: White Blood Count 11.6H, Red Blood Count 4.94, Hemoglobin 16.1, Hematocrit 49.4 , Mean Corpuscular Volume 100H, Mean Corpuscular Hemoglobin 32.7H, Mean Corpuscular Hemoglobin Concent 32.6, Red Cell Distribution Width 11.8, Platelet Count 175, Mean Platelet Volume 6.9, Neutrophils (%) (Auto) 74.7, Lymphocytes (% ) (Auto) 18.4L, Monocytes (%) (Auto) 5.3, Eosinophils (%) (Auto) 0.9, Basophils (%) (Auto) 0.6, Sodium Level 158H, Potassium Level 3.6, Chloride Level 122H, Carbon Dioxide Level 22, Anion Gap 14, Blood Urea Nitrogen 35H, Creatinine 1.4H , Estimat Glomerular Filtration Rate 51.0, Glucose Level 152H, Calcium Level 9.3 , Total Bilirubin 0.4, Aspartate Amino Transf (AST/SGOT) 41H, Alanine Aminotransferase (ALT/SGPT) 15, Alkaline Phosphatase 97, Total Protein 7.3, Albumin 3.0L, Globulin 4.3, Albumin/Globulin Ratio 0.7L 06/04/17 04:50: White Blood Count 11.5H, Red Blood Count 5.08, Hemoglobin 17.5, Hematocrit 50.7 , Mean Corpuscular Volume 100H, Mean Corpuscular Hemoglobin 34.4H, Mean Corpuscular Hemoglobin Concent 34.4, Red Cell Distribution Width 11.9, Platelet Count 160, Mean Platelet Volume 7.3, Neutrophils (%) (Auto) 69.2, Lymphocytes (% ) (Auto) 23.4, Monocytes (%) (Auto) 5.2, Eosinophils (%) (Auto) 1.8, Basophils ( %) (Auto) 0.5, Sodium Level 159H, Potassium Level 3.6, Chloride Level 121H, Carbon Dioxide Level 24, Anion Gap 14, Blood Urea Nitrogen 31H, Creatinine 1.4H , Estimat Glomerular Filtration Rate 51.0, Glucose Level 127H, Calcium Level 9.5 , Vitamin B12 Level 584, Folate 10.1, Thyroid Stimulating Hormone (TSH) 1.549 Height (Feet): 6 Height (Inches): 0.00 Weight (Pounds): 184 General Appearance: WD/WN, alert Neck: supple Cardiovascular: normal rate, regular rhythm Respiratory/Chest: chest wall non-tender, lungs clear, normal breath sounds, no respiratory distress Abdomen: normal bowel sounds, non tender, soft, no organomegaly Neurologic: disoriented, aphasia Lymphatic: normal anterior cervical (L), normal anterior cervical (R), normal posterior cervical (L), normal posterior cervical (R), normal submandibular (L) , normal submandibular (R), normal supraclavicular (L), normal supraclavicular ( R), normal axillary (L), normal axillary (R), normal inguinal (L), normal inguinal (R), normal other JOSE MIGUEL KEITH Jun 04, 2017 12:06
--- NOTE | 2017-06-04 12:06 | General Progress Note ---
Assessment/Plan Problem List: (1) Hypernatremia ICD Codes: E87.0 - Hyperosmolality and hypernatremia SNOMED: 16187196 (2) Leukocytosis ICD Codes: D72.829 - Elevated white blood cell count, unspecified SNOMED: 313009527, 983920313 (3) Renal insufficiency ICD Codes: N28.9 - Disorder of kidney and ureter, unspecified SNOMED: 821335904, 197489267 (4) HIV (human immunodeficiency virus infection) ICD Codes: B20 - Human immunodeficiency virus [HIV] disease SNOMED: 69910687 Status: stable, progressing Assessment/Plan ivf increased abx per id psych eval resp care monitor labs Subjective ROS Limited/Unobtainable: Yes Constitutional: Reports: malaise, weakness HEENT: Reports: no symptoms Cardiovascular: Reports: no symptoms Respiratory: Reports: cough Gastrointestinal/Abdominal: Reports: poor appetite Genitourinary: Reports: no symptoms Neurologic/Psychiatric: Reports: emotional problems, pre-existing deficit Endocrine: Reports: no symptoms Hematologic/Lymphatic: Reports: anemia Allergies: Coded Allergies: No Known Allergies (Unverified , 06/02/17) All Systems: reviewed and negative except above Subjective no events. intermittent agitation. aggressive at times. labs not better despite ivf Objective Last 24 Hour Vital Signs Date Time Temp Pulse Resp B/P (MAP) Pulse Ox O2 Delivery O2 Flow Rate FiO2 06/04/17 08:44 82 132/72 06/04/17 08:00 97.9 86 17 132/92 98 Room Air 06/04/17 04:29 97.4 90 20 117/89 94 Room Air 06/04/17 00:17 98.6 88 19 122/87 94 Room Air 06/03/17 20:19 98.8 100 20 120/83 94 Room Air 06/03/17 20:08 65 120/83 06/03/17 16:00 97.2 94 19 125/90 94 Room Air 06/03/17 12:30 97.2 95 20 122/89 95 Room Air Intake and Output 06/04/17 06/05/17 19:00 07:00 Intake Total 112.5 ml Balance 112.5 ml IV Total 112.5 ml Laboratory Tests 06/03/17 14:00: White Blood Count 11.6H, Red Blood Count 4.94, Hemoglobin 16.1, Hematocrit 49.4 , Mean Corpuscular Volume 100H, Mean Corpuscular Hemoglobin 32.7H, Mean Corpuscular Hemoglobin Concent 32.6, Red Cell Distribution Width 11.8, Platelet Count 175, Mean Platelet Volume 6.9, Neutrophils (%) (Auto) 74.7, Lymphocytes (% ) (Auto) 18.4L, Monocytes (%) (Auto) 5.3, Eosinophils (%) (Auto) 0.9, Basophils (%) (Auto) 0.6, Sodium Level 158H, Potassium Level 3.6, Chloride Level 122H, Carbon Dioxide Level 22, Anion Gap 14, Blood Urea Nitrogen 35H, Creatinine 1.4H , Estimat Glomerular Filtration Rate 51.0, Glucose Level 152H, Calcium Level 9.3 , Total Bilirubin 0.4, Aspartate Amino Transf (AST/SGOT) 41H, Alanine Aminotransferase (ALT/SGPT) 15, Alkaline Phosphatase 97, Total Protein 7.3, Albumin 3.0L, Globulin 4.3, Albumin/Globulin Ratio 0.7L 06/04/17 04:50: White Blood Count 11.5H, Red Blood Count 5.08, Hemoglobin 17.5, Hematocrit 50.7 , Mean Corpuscular Volume 100H, Mean Corpuscular Hemoglobin 34.4H, Mean Corpuscular Hemoglobin Concent 34.4, Red Cell Distribution Width 11.9, Platelet Count 160, Mean Platelet Volume 7.3, Neutrophils (%) (Auto) 69.2, Lymphocytes (% ) (Auto) 23.4, Monocytes (%) (Auto) 5.2, Eosinophils (%) (Auto) 1.8, Basophils ( %) (Auto) 0.5, Sodium Level 159H, Potassium Level 3.6, Chloride Level 121H, Carbon Dioxide Level 24, Anion Gap 14, Blood Urea Nitrogen 31H, Creatinine 1.4H , Estimat Glomerular Filtration Rate 51.0, Glucose Level 127H, Calcium Level 9.5 , Vitamin B12 Level 584, Folate 10.1, Thyroid Stimulating Hormone (TSH) 1.549 Height (Feet): 6 Height (Inches): 0.00 Weight (Pounds): 184 General Appearance: WD/WN, alert Neck: supple Cardiovascular: normal rate, regular rhythm Respiratory/Chest: chest wall non-tender, lungs clear, normal breath sounds, no respiratory distress Abdomen: normal bowel sounds, non tender, soft, no organomegaly Neurologic: disoriented, aphasia Lymphatic: normal anterior cervical (L), normal anterior cervical (R), normal posterior cervical (L), normal posterior cervical (R), normal submandibular (L) , normal submandibular (R), normal supraclavicular (L), normal supraclavicular ( R), normal axillary (L), normal axillary (R), normal inguinal (L), normal inguinal (R), normal other JOSE MIGUEL KEITH Jun 04, 2017 12:06
--- NOTE | 2017-06-04 12:06 | General Progress Note ---
Assessment/Plan Problem List: (1) Hypernatremia ICD Codes: E87.0 - Hyperosmolality and hypernatremia SNOMED: 94628121 (2) Leukocytosis ICD Codes: D72.829 - Elevated white blood cell count, unspecified SNOMED: 825712564, 995594291 (3) Renal insufficiency ICD Codes: N28.9 - Disorder of kidney and ureter, unspecified SNOMED: 178101788, 862765220 (4) HIV (human immunodeficiency virus infection) ICD Codes: B20 - Human immunodeficiency virus [HIV] disease SNOMED: 31331551 Status: stable, progressing Assessment/Plan ivf increased abx per id psych eval resp care monitor labs Subjective ROS Limited/Unobtainable: Yes Constitutional: Reports: malaise, weakness HEENT: Reports: no symptoms Cardiovascular: Reports: no symptoms Respiratory: Reports: cough Gastrointestinal/Abdominal: Reports: poor appetite Genitourinary: Reports: no symptoms Neurologic/Psychiatric: Reports: emotional problems, pre-existing deficit Endocrine: Reports: no symptoms Hematologic/Lymphatic: Reports: anemia Allergies: Coded Allergies: No Known Allergies (Unverified , 06/02/17) All Systems: reviewed and negative except above Subjective no events. intermittent agitation. aggressive at times. labs not better despite ivf Objective Last 24 Hour Vital Signs Date Time Temp Pulse Resp B/P (MAP) Pulse Ox O2 Delivery O2 Flow Rate FiO2 06/04/17 08:44 82 132/72 06/04/17 08:00 97.9 86 17 132/92 98 Room Air 06/04/17 04:29 97.4 90 20 117/89 94 Room Air 06/04/17 00:17 98.6 88 19 122/87 94 Room Air 06/03/17 20:19 98.8 100 20 120/83 94 Room Air 06/03/17 20:08 65 120/83 06/03/17 16:00 97.2 94 19 125/90 94 Room Air 06/03/17 12:30 97.2 95 20 122/89 95 Room Air Intake and Output 06/04/17 06/05/17 19:00 07:00 Intake Total 112.5 ml Balance 112.5 ml IV Total 112.5 ml Laboratory Tests 06/03/17 14:00: White Blood Count 11.6H, Red Blood Count 4.94, Hemoglobin 16.1, Hematocrit 49.4 , Mean Corpuscular Volume 100H, Mean Corpuscular Hemoglobin 32.7H, Mean Corpuscular Hemoglobin Concent 32.6, Red Cell Distribution Width 11.8, Platelet Count 175, Mean Platelet Volume 6.9, Neutrophils (%) (Auto) 74.7, Lymphocytes (% ) (Auto) 18.4L, Monocytes (%) (Auto) 5.3, Eosinophils (%) (Auto) 0.9, Basophils (%) (Auto) 0.6, Sodium Level 158H, Potassium Level 3.6, Chloride Level 122H, Carbon Dioxide Level 22, Anion Gap 14, Blood Urea Nitrogen 35H, Creatinine 1.4H , Estimat Glomerular Filtration Rate 51.0, Glucose Level 152H, Calcium Level 9.3 , Total Bilirubin 0.4, Aspartate Amino Transf (AST/SGOT) 41H, Alanine Aminotransferase (ALT/SGPT) 15, Alkaline Phosphatase 97, Total Protein 7.3, Albumin 3.0L, Globulin 4.3, Albumin/Globulin Ratio 0.7L 06/04/17 04:50: White Blood Count 11.5H, Red Blood Count 5.08, Hemoglobin 17.5, Hematocrit 50.7 , Mean Corpuscular Volume 100H, Mean Corpuscular Hemoglobin 34.4H, Mean Corpuscular Hemoglobin Concent 34.4, Red Cell Distribution Width 11.9, Platelet Count 160, Mean Platelet Volume 7.3, Neutrophils (%) (Auto) 69.2, Lymphocytes (% ) (Auto) 23.4, Monocytes (%) (Auto) 5.2, Eosinophils (%) (Auto) 1.8, Basophils ( %) (Auto) 0.5, Sodium Level 159H, Potassium Level 3.6, Chloride Level 121H, Carbon Dioxide Level 24, Anion Gap 14, Blood Urea Nitrogen 31H, Creatinine 1.4H , Estimat Glomerular Filtration Rate 51.0, Glucose Level 127H, Calcium Level 9.5 , Vitamin B12 Level 584, Folate 10.1, Thyroid Stimulating Hormone (TSH) 1.549 Height (Feet): 6 Height (Inches): 0.00 Weight (Pounds): 184 General Appearance: WD/WN, alert Neck: supple Cardiovascular: normal rate, regular rhythm Respiratory/Chest: chest wall non-tender, lungs clear, normal breath sounds, no respiratory distress Abdomen: normal bowel sounds, non tender, soft, no organomegaly Neurologic: disoriented, aphasia Lymphatic: normal anterior cervical (L), normal anterior cervical (R), normal posterior cervical (L), normal posterior cervical (R), normal submandibular (L) , normal submandibular (R), normal supraclavicular (L), normal supraclavicular ( R), normal axillary (L), normal axillary (R), normal inguinal (L), normal inguinal (R), normal other JOSE MIGUEL KEITH Jun 04, 2017 12:06
[2017-06-04] MEDS: CRIXIVAN ORAL SCH ×2 (13:00→17:12)
--- NOTE | 2017-06-04 15:24 | Diagnostic Imaging Report ---
Indications: DYSPHAGIA Technique: Patient ingested multiple substances under the supervision of speech pathology. Video fluoroscopic recording performed. Total fluoroscopy time 167 seconds. Total dose area product 0.52724 mGycm2 Comparison: none Findings: With ingestion of thin liquid barium, there is equivocal trace laryngeal penetration within ingested through a straw. There is equivocal trace penetration of nectar thick liquid barium, honey thick liquid barium, and barium pur?e there is some early pooling of barium pur?e prior swallowing, good clearance with swallowing. Ingestion of barium-soaked solid is uneventful Impression: Equivocal trace penetration of multiple substances, as described. Please refer to speech pathology report for more detailed analysis
--- NOTE | 2017-06-04 15:24 | Diagnostic Imaging Report ---
Indications: DYSPHAGIA Technique: Patient ingested multiple substances under the supervision of speech pathology. Video fluoroscopic recording performed. Total fluoroscopy time 167 seconds. Total dose area product 0.78920 mGycm2 Comparison: none Findings: With ingestion of thin liquid barium, there is equivocal trace laryngeal penetration within ingested through a straw. There is equivocal trace penetration of nectar thick liquid barium, honey thick liquid barium, and barium pur?e there is some early pooling of barium pur?e prior swallowing, good clearance with swallowing. Ingestion of barium-soaked solid is uneventful Impression: Equivocal trace penetration of multiple substances, as described. Please refer to speech pathology report for more detailed analysis
--- NOTE | 2017-06-04 15:24 | Diagnostic Imaging Report ---
Indications: DYSPHAGIA Technique: Patient ingested multiple substances under the supervision of speech pathology. Video fluoroscopic recording performed. Total fluoroscopy time 167 seconds. Total dose area product 0.40994 mGycm2 Comparison: none Findings: With ingestion of thin liquid barium, there is equivocal trace laryngeal penetration within ingested through a straw. There is equivocal trace penetration of nectar thick liquid barium, honey thick liquid barium, and barium pur?e there is some early pooling of barium pur?e prior swallowing, good clearance with swallowing. Ingestion of barium-soaked solid is uneventful Impression: Equivocal trace penetration of multiple substances, as described. Please refer to speech pathology report for more detailed analysis
[2017-06-04 15:59] VITALS: BP 141/80
[2017-06-04] MEDS: NEVIRAPINE 200 MG ORAL SCH (17:12)
[2017-06-04] MEDS: DIDANOSINE ORAL SCH (17:12)
[2017-06-04 20:00] VITALS: BP 120/67
[2017-06-04] MEDS: Atorvastatin 80mg tab ORAL SCH (21:18)
[2017-06-04] MEDS: Vancomycin 1250mg/D5W 250ml IVPB SCH (21:19)
[2017-06-05] VITALS: BP 117/69
--- NOTE | 2017-06-05 03:15 | Progress Note ---
DATE: 06/04/2017 CARDIOLOGY PROGRESS NOTE Patient has episodes of agitation and confusion. His oral intake requires one-to-one feeding. VITAL SIGNS: 133/72, heart rate 82, respiratory rate 17. He remains afebrile. PHYSICAL EXAMINATION: Dry mucous membranes. LUNGS: Good breath sounds no wheezing. HEART: Regular rhythm rate. Normal S1, S2 with a fourth heart sound. ABDOMEN: Soft. No edema. LABORATORY DATA: White count 11.5, hemoglobin 17.5. Sodium 159, potassium 3.6, chloride 121, BUN 31, creatinine 1.4. TSH 1.5. B12 folate levels within normal limits. IMPRESSION: 1. Severe dehydration. 2. Hypernatremia. 3. Hyperkalemia. 4. Hypovolemia. 5. Acute kidney injury. 6. ATN. 7. Mild protein calorie malnutrition. 8. Secondary sinus tachycardia. PLAN: 1. Increase intravenous fluid hydration with hypotonic fluids. 2. DVT prophylaxis. 3. Nutritional support. 4. Skin care. 5. Monitor chemistry panel. Adjust therapy accordingly. Rob Villalpando M.D. DR: LEIDY JOB#: [id number] CC:
[2017-06-05 04:00] VITALS: BP 120/76
[2017-06-05] MEDS: Zosyn 3.375gm q8h **Extended infusion IVPB SCH ×3 (05:08→21:10)
[2017-06-05] MEDS: DIDANOSINE ORAL SCH ×2 (05:44→17:14)
[2017-06-05 08:00] VITALS: BP 125/83
--- NOTE | 2017-06-05 08:17 | General Progress Note ---
Assessment/Plan Problem List: (1) Hypernatremia ICD Codes: E87.0 - Hyperosmolality and hypernatremia SNOMED: 76534948 (2) Leukocytosis ICD Codes: D72.829 - Elevated white blood cell count, unspecified SNOMED: 280475039, 920964218 Qualifiers: Qualified Codes: D72.829 - Elevated white blood cell count, unspecified (3) Renal insufficiency ICD Codes: N28.9 - Disorder of kidney and ureter, unspecified SNOMED: 282267729, 213133884 (4) HIV (human immunodeficiency virus infection) ICD Codes: B20 - Human immunodeficiency virus [HIV] disease SNOMED: 85036795 Status: stable, not improved Assessment/Plan ivf follow up labs abx per id psych eval resp care monitor labs encourage pos Subjective ROS Limited/Unobtainable: No Constitutional: Reports: malaise, weakness HEENT: Reports: no symptoms Cardiovascular: Reports: no symptoms Respiratory: Reports: no symptoms Gastrointestinal/Abdominal: Reports: poor appetite, poor fluid intake Genitourinary: Reports: no symptoms Neurologic/Psychiatric: Reports: pre-existing deficit Endocrine: Reports: no symptoms Hematologic/Lymphatic: Reports: no symptoms Allergies: Coded Allergies: No Known Allergies (Unverified , 06/02/17) All Systems: reviewed and negative except above Subjective no events. intermittent agitation. aggressive at times. labs pending poor po intake. refused meds at times. on ivf. on anxiolytics Objective Last 24 Hour Vital Signs Date Time Temp Pulse Resp B/P (MAP) Pulse Ox O2 Delivery O2 Flow Rate FiO2 06/05/17 08:00 97.6 81 19 125/83 93 Room Air 06/05/17 04:00 97.5 79 19 120/76 100 Room Air 06/05/17 00:00 97.6 86 18 117/69 99 Room Air 06/04/17 21:18 84 120/67 06/04/17 20:00 97.7 84 20 120/67 94 Room Air 06/04/17 15:59 97.7 90 17 141/80 95 Room Air 06/04/17 12:55 90 128/96 06/04/17 12:00 98.3 90 18 128/96 94 Room Air 06/04/17 08:44 82 132/72 Height (Feet): 6 Height (Inches): 0.00 Weight (Pounds): 184 Objective General Appearance: WD/WN, alert Neck: supple Cardiovascular: normal rate, regular rhythm Respiratory/Chest: chest wall non-tender, lungs clear, normal breath sounds, no respiratory distress Abdomen: normal bowel sounds, non tender, soft, no organomegaly Neurologic: disoriented, aphasia Lymphatic: normal anterior cervical (L), normal anterior cervical (R), normal posterior cervical (L), normal posterior cervical (R), normal submandibular (L) , normal submandibular (R), normal supraclavicular (L), normal supraclavicular ( R), normal axillary (L), normal axillary (R), normal inguinal (L), normal inguinal (R), normal other JOSE MIGUEL KEITH Jun 05, 2017 08:17
--- NOTE | 2017-06-05 08:17 | General Progress Note ---
Assessment/Plan Problem List: (1) Hypernatremia ICD Codes: E87.0 - Hyperosmolality and hypernatremia SNOMED: 16993417 (2) Leukocytosis ICD Codes: D72.829 - Elevated white blood cell count, unspecified SNOMED: 617194487, 683003536 Qualifiers: Qualified Codes: D72.829 - Elevated white blood cell count, unspecified (3) Renal insufficiency ICD Codes: N28.9 - Disorder of kidney and ureter, unspecified SNOMED: 348646590, 820314594 (4) HIV (human immunodeficiency virus infection) ICD Codes: B20 - Human immunodeficiency virus [HIV] disease SNOMED: 71557687 Status: stable, not improved Assessment/Plan ivf follow up labs abx per id psych eval resp care monitor labs encourage pos Subjective ROS Limited/Unobtainable: No Constitutional: Reports: malaise, weakness HEENT: Reports: no symptoms Cardiovascular: Reports: no symptoms Respiratory: Reports: no symptoms Gastrointestinal/Abdominal: Reports: poor appetite, poor fluid intake Genitourinary: Reports: no symptoms Neurologic/Psychiatric: Reports: pre-existing deficit Endocrine: Reports: no symptoms Hematologic/Lymphatic: Reports: no symptoms Allergies: Coded Allergies: No Known Allergies (Unverified , 06/02/17) All Systems: reviewed and negative except above Subjective no events. intermittent agitation. aggressive at times. labs pending poor po intake. refused meds at times. on ivf. on anxiolytics Objective Last 24 Hour Vital Signs Date Time Temp Pulse Resp B/P (MAP) Pulse Ox O2 Delivery O2 Flow Rate FiO2 06/05/17 08:00 97.6 81 19 125/83 93 Room Air 06/05/17 04:00 97.5 79 19 120/76 100 Room Air 06/05/17 00:00 97.6 86 18 117/69 99 Room Air 06/04/17 21:18 84 120/67 06/04/17 20:00 97.7 84 20 120/67 94 Room Air 06/04/17 15:59 97.7 90 17 141/80 95 Room Air 06/04/17 12:55 90 128/96 06/04/17 12:00 98.3 90 18 128/96 94 Room Air 06/04/17 08:44 82 132/72 Height (Feet): 6 Height (Inches): 0.00 Weight (Pounds): 184 Objective General Appearance: WD/WN, alert Neck: supple Cardiovascular: normal rate, regular rhythm Respiratory/Chest: chest wall non-tender, lungs clear, normal breath sounds, no respiratory distress Abdomen: normal bowel sounds, non tender, soft, no organomegaly Neurologic: disoriented, aphasia Lymphatic: normal anterior cervical (L), normal anterior cervical (R), normal posterior cervical (L), normal posterior cervical (R), normal submandibular (L) , normal submandibular (R), normal supraclavicular (L), normal supraclavicular ( R), normal axillary (L), normal axillary (R), normal inguinal (L), normal inguinal (R), normal other JOSE MIGUEL KEITH Jun 05, 2017 08:17
--- NOTE | 2017-06-05 08:17 | General Progress Note ---
Assessment/Plan Problem List: (1) Hypernatremia ICD Codes: E87.0 - Hyperosmolality and hypernatremia SNOMED: 63386218 (2) Leukocytosis ICD Codes: D72.829 - Elevated white blood cell count, unspecified SNOMED: 456631023, 185606547 Qualifiers: Qualified Codes: D72.829 - Elevated white blood cell count, unspecified (3) Renal insufficiency ICD Codes: N28.9 - Disorder of kidney and ureter, unspecified SNOMED: 194839772, 041172988 (4) HIV (human immunodeficiency virus infection) ICD Codes: B20 - Human immunodeficiency virus [HIV] disease SNOMED: 81391736 Status: stable, not improved Assessment/Plan ivf follow up labs abx per id psych eval resp care monitor labs encourage pos Subjective ROS Limited/Unobtainable: No Constitutional: Reports: malaise, weakness HEENT: Reports: no symptoms Cardiovascular: Reports: no symptoms Respiratory: Reports: no symptoms Gastrointestinal/Abdominal: Reports: poor appetite, poor fluid intake Genitourinary: Reports: no symptoms Neurologic/Psychiatric: Reports: pre-existing deficit Endocrine: Reports: no symptoms Hematologic/Lymphatic: Reports: no symptoms Allergies: Coded Allergies: No Known Allergies (Unverified , 06/02/17) All Systems: reviewed and negative except above Subjective no events. intermittent agitation. aggressive at times. labs pending poor po intake. refused meds at times. on ivf. on anxiolytics Objective Last 24 Hour Vital Signs Date Time Temp Pulse Resp B/P (MAP) Pulse Ox O2 Delivery O2 Flow Rate FiO2 06/05/17 08:00 97.6 81 19 125/83 93 Room Air 06/05/17 04:00 97.5 79 19 120/76 100 Room Air 06/05/17 00:00 97.6 86 18 117/69 99 Room Air 06/04/17 21:18 84 120/67 06/04/17 20:00 97.7 84 20 120/67 94 Room Air 06/04/17 15:59 97.7 90 17 141/80 95 Room Air 06/04/17 12:55 90 128/96 06/04/17 12:00 98.3 90 18 128/96 94 Room Air 06/04/17 08:44 82 132/72 Height (Feet): 6 Height (Inches): 0.00 Weight (Pounds): 184 Objective General Appearance: WD/WN, alert Neck: supple Cardiovascular: normal rate, regular rhythm Respiratory/Chest: chest wall non-tender, lungs clear, normal breath sounds, no respiratory distress Abdomen: normal bowel sounds, non tender, soft, no organomegaly Neurologic: disoriented, aphasia Lymphatic: normal anterior cervical (L), normal anterior cervical (R), normal posterior cervical (L), normal posterior cervical (R), normal submandibular (L) , normal submandibular (R), normal supraclavicular (L), normal supraclavicular ( R), normal axillary (L), normal axillary (R), normal inguinal (L), normal inguinal (R), normal other JOSE MIGUEL KEITH Jun 05, 2017 08:17
[2017-06-05] MEDS: NEVIRAPINE 200 MG ORAL SCH ×2 (09:03→17:13)
[2017-06-05] MEDS: CRIXIVAN ORAL SCH ×3 (09:03→17:12)
[2017-06-05] MEDS: Metoprolol 25mg tab ORAL SCH ×3 (09:04→21:09)
[2017-06-05] MEDS: Sinemet 25/100 tab ORAL SCH ×3 (09:04→17:15)
[2017-06-05] MEDS: Heparin 5000 units/ml inj SUBQ SCH ×3 (09:06→21:13)
[2017-06-05 09:43] LABS: ANION GAP 8 mmol/L (5-15); BLOOD UREA NITROGEN 18 mg/dL (7-18); CALCIUM 8.9 MG/DL (8.5-10.1); CARBON DIOXIDE 26 MMOL/L (21-32); CHLORIDE 113 MMOL/L (98-107); CREATININE 1.1 MG/DL (0.55-1.30); POTASSIUM 3.1 MMOL/L (3.5-5.1); SODIUM 147 MMOL/L (136-145)
[2017-06-05 11:36] VITALS: BP 120/74
--- NOTE | 2017-06-05 14:21 | Infectious Diseases Prog Note ---
Assessment/Plan Assessment/Plan A) 1) sepsis, ? asp pna/hcap pna, leukocytosis, fevers, michael, dehydration, hypernatremia - ? silent aspiration - blood cultures - negative, chest x-ray negative - leukocytosis and fever improved 2) hiv, ? cd4/vl - cd4 pending 3) Parkinson's, dysphagia, dementia, htn, psychosis, aphasia, dm, depression , hyperlipidemia 4) aspiration risk 5) allergies - nka, sh-negative, mar noted, notes and records reviewed 6) d/w RN P) 1) iv zosyn, discontinue vancomycin - consider changing to po augmentin for 5 days if continues to improve 2) check cultures final, labs, cd4 3) anti-retrovirals - indinavir, ddi, nevirapine when all available 4) continue treatment per primary and consultants 5) orders entered and noted 6) communicated with pharmacy about anti-retrovirals Subjective Constitutional: Reports: fatigue, Denies: fever HEENT: Denies: congestion Respiratory: Denies: shortness of breath Cardiovascular: Denies: chest pain Gastrointestinal/Abdominal: Denies: nausea, vomiting, diarrhea Neurologic: Reports: other - + tidwell Psychiatric: Denies: depression Skin: Denies: rash Hematologic: Denies: bleeding Musculoskeletal: Denies: pain Allergies: Coded Allergies: No Known Allergies (Unverified , 06/02/17) Objective Vital Signs Last 24 Hour Vital Signs Date Time Temp Pulse Resp B/P (MAP) Pulse Ox O2 Delivery O2 Flow Rate FiO2 06/05/17 11:36 97.6 70 20 120/74 98 Room Air 06/05/17 09:04 81 125/83 06/05/17 08:00 97.6 81 19 125/83 93 Room Air 06/05/17 04:00 97.5 79 19 120/76 100 Room Air 06/05/17 00:00 97.6 86 18 117/69 99 Room Air 06/04/17 21:18 84 120/67 06/04/17 20:00 97.7 84 20 120/67 94 Room Air 06/04/17 15:59 97.7 90 17 141/80 95 Room Air Height (Feet): 6 Height (Inches): 0.00 Weight (Pounds): 184 General Appearance: no acute distress HEENT: normocephalic, atraumatic, anicteric, mucous membranes moist, EOMI, pharynx normal, supple, no JVD Respiratory/Chest: lungs clear, normal breath sounds, no respiratory distress, no accessory muscle use, other - occ rhonchi Cardiovascular: normal rate, regular rhythm, no gallop/murmur, no JVD Abdomen: normal bowel sounds, soft, non tender, no organomegaly, non distended Genitourinary: other - + tidwell - urine clear Extremities: no cyanosis Skin: no rash Neurologic/Psychiatric: employee counselor II-XII grossly normal, alert, responsive Lymphatic: no neck adenopathy Musculoskeletal: no effusion Objective 06/04 - chest x-ray Comparison: 06/03/2017 Findings: Patient's chin obscures the upper mediastinum and medial lung apices. The lungs and pleural spaces are clear. The heart size is normal. There is a right clavicular fracture deformity again demonstrated. Contrast from recent video swallowing study is seen within the colon. Findings are otherwise unchanged Impression: No acute process Microbiology Date/Time Source Procedure Growth Status 06/03/17 00:09 Blood Blood Culture - Preliminary NO GROWTH AFTER 48 HOURS Resulted 06/02/17 23:45 Blood Blood Culture - Preliminary NO GROWTH AFTER 48 HOURS Resulted 06/03/17 00:09 Nasal Nares MRSA Culture - Final NO METHICILLIN RESISTANT STAPH AUREUS... Complete 06/03/17 00:09 Rectum VRE Culture - Final NO VANCOMYCIN RESISTANT ENTEROCOCCUS ... Complete Labs Test 06/03/17 00:09 06/03/17 14:00 06/04/17 04:50 06/05/17 09:10 White Blood Count 16.3 K/UL (4.8-10.8) 11.6 K/UL (4.8-10.8) 11.5 K/UL (4.8-10.8) Red Blood Count 5.69 M/UL (4.70-6.10) 4.94 M/UL (4.70-6.10) 5.08 M/UL (4.70-6.10) Hemoglobin 18.0 G/DL (14.2-18.0) 16.1 G/DL (14.2-18.0) 17.5 G/DL (14.2-18.0) Hematocrit 55.9 % (42.0-52.0) 49.4 % (42.0-52.0) 50.7 % (42.0-52.0) Mean Corpuscular Volume 98 FL (80-99) 100 FL (80-99) 100 FL (80-99) Mean Corpuscular Hemoglobin 32.8 PG (27.0-31.0) 32.7 PG (27.0-31.0) 34.4 PG (27.0-31.0) Mean Corpuscular Hemoglobin Concent 33.4 G/DL (32.0-36.0) 32.6 G/DL (32.0-36.0) 34.4 G/DL (32.0-36.0) Red Cell Distribution Width 11.9 % (11.6-14.8) 11.8 % (11.6-14.8) 11.9 % (11.6-14.8) Platelet Count 205 K/UL (150-450) 175 K/UL (150-450) 160 K/UL (150-450) Mean Platelet Volume 6.8 FL (6.5-10.1) 6.9 FL (6.5-10.1) 7.3 FL (6.5-10.1) Neutrophils (%) (Auto) 72.6 % (45.0-75.0) 74.7 % (45.0-75.0) 69.2 % (45.0-75.0) Lymphocytes (%) (Auto) 20.4 % (20.0-45.0) 18.4 % (20.0-45.0) 23.4 % (20.0-45.0) Monocytes (%) (Auto) 5.4 % (1.0-10.0) 5.3 % (1.0-10.0) 5.2 % (1.0-10.0) Eosinophils (%) (Auto) 1.0 % (0.0-3.0) 0.9 % (0.0-3.0) 1.8 % (0.0-3.0) Basophils (%) (Auto) 0.6 % (0.0-2.0) 0.6 % (0.0-2.0) 0.5 % (0.0-2.0) Prothrombin Time 10.4 SEC (9.30-11.50) Prothromb Time International Ratio 1.0 (0.9-1.1) Activated Partial Thromboplast Time 27 SEC (23-33) Urine Color Yellow Urine Appearance Clear Urine pH 5 (4.5-8.0) Urine Specific [place] 1.025 (1.005-1.035) Urine Protein 2+ (NEGATIVE) Urine Glucose (UA) Negative (NEGATIVE) Urine Ketones Negative (NEGATIVE) Urine Occult Blood 2+ (NEGATIVE) Urine Nitrite Negative (NEGATIVE) Urine Bilirubin 1+ (NEGATIVE) Urine Ictotest Negative Urine Urobilinogen Normal MG/DL (0.0-1.0) Urine Leukocyte Esterase 1+ (NEGATIVE) Urine RBC 2-4 /HPF (0 - 0) Urine WBC 2-4 /HPF (0 - 0) Urine Squamous Epithelial Cells Few /LPF (NONE/OCC) Urine Bacteria Few /HPF (NONE) Sodium Level 160 MMOL/L (136-145) 158 MMOL/L (136-145) 159 MMOL/L (136-145) 147 MMOL/L (136-145) Potassium Level 3.5 MMOL/L (3.5-5.1) 3.6 MMOL/L (3.5-5.1) 3.6 MMOL/L (3.5-5.1) 3.1 MMOL/L (3.5-5.1) Chloride Level 122 MMOL/L (98-107) 122 MMOL/L (98-107) 121 MMOL/L (98-107) 113 MMOL/L (98-107) Carbon Dioxide Level 23 MMOL/L (21-32) 22 MMOL/L (21-32) 24 MMOL/L (21-32) 26 MMOL/L (21-32) Anion Gap 16 mmol/L (5-15) 14 mmol/L (5-15) 14 mmol/L (5-15) 8 mmol/L (5-15) Blood Urea Nitrogen 39 mg/dL (7-18) 35 mg/dL (7-18) 31 mg/dL (7-18) 18 mg/dL (7-18) Creatinine 1.7 MG/DL (0.55-1.30) 1.4 MG/DL (0.55-1.30) 1.4 MG/DL (0.55-1.30) 1.1 MG/DL (0.55-1.30) Estimat Glomerular Filtration Rate 40.8 mL/min (>60) 51.0 mL/min (>60) 51.0 mL/min (>60) > 60 mL/min (>60) Glucose Level 140 MG/DL (74-106) 152 MG/DL (74-106) 127 MG/DL (74-106) 111 MG/DL (74-106) Lactic Acid Level 1.70 mmol/L (0.66-2.22) Calcium Level 9.9 MG/DL (8.5-10.1) 9.3 MG/DL (8.5-10.1) 9.5 MG/DL (8.5-10.1) 8.9 MG/DL (8.5-10.1) Total Bilirubin 0.4 MG/DL (0.2-1.0) 0.4 MG/DL (0.2-1.0) Aspartate Amino Transf (AST/SGOT) 30 U/L (15-37) 41 U/L (15-37) Alanine Aminotransferase (ALT/SGPT) 36 U/L (12-78) 15 U/L (12-78) Alkaline Phosphatase 107 U/L (46-116) 97 U/L (46-116) Total Creatine Kinase 409 U/L (26-308) Troponin I 0.000 ng/mL (0.000-0.056) Pro-B-Type Natriuretic Peptide 22 pg/mL (0-125) Total Protein 8.0 G/DL (6.4-8.2) 7.3 G/DL (6.4-8.2) Albumin 3.5 G/DL (3.4-5.0) 3.0 G/DL (3.4-5.0) Globulin 4.5 g/dL 4.3 g/dL Albumin/Globulin Ratio 0.8 (1.0-2.7) 0.7 (1.0-2.7) Lipase 186 U/L (73-393) Vitamin B12 Level 584 PG/ML (193-986) Folate 10.1 NG/ML (3.1-17.5) Thyroid Stimulating Hormone (TSH) 1.549 uiU/mL (0.360-3.740) Laboratory Tests Test 06/05/17 09:10 Sodium Level 147 MMOL/L (136-145) H Potassium Level 3.1 MMOL/L (3.5-5.1) L Chloride Level 113 MMOL/L (98-107) H Carbon Dioxide Level 26 MMOL/L (21-32) Anion Gap 8 mmol/L (5-15) Blood Urea Nitrogen 18 mg/dL (7-18) Creatinine 1.1 MG/DL (0.55-1.30) Estimat Glomerular Filtration Rate > 60 mL/min (>60) Glucose Level 111 MG/DL (74-106) H Calcium Level 8.9 MG/DL (8.5-10.1) Current Medications Medications (Trade) Dose Ordered Sig/Kelly Route PRN Reason Start Time Stop Time Status Last Admin Dose Admin Acetaminophen (Tylenol) 500 mg Q4HR PRN ORAL Mild Pain (Pain Scale 1-3) 06/03/17 05:45 07/03/17 05:44 Atorvastatin Calcium (Lipitor) 80 mg BEDTIME ORAL 06/03/17 21:00 07/03/17 20:59 06/04/17 21:18 Carbidopa/Levodopa (Sinemet 25/100) 1 ea THREE TIMES A DAY ORAL 06/03/17 13:00 07/03/17 12:59 06/05/17 13:46 Dextrose 1,000 ml @ 125 mls/hr Q8H IV 06/04/17 12:45 07/04/17 12:44 06/05/17 05:06 Guaifenesin (Robitussin) 10 mg TIDPRN PRN ORAL For Cough 06/03/17 05:45 07/03/17 05:44 Heparin Sodium (Porcine) (Heparin 5000 units/ml) 5,000 units EVERY 12 HOURS SUBQ 06/03/17 09:00 07/03/17 08:59 06/05/17 09:06 Metoprolol Tartrate (Lopressor) 25 mg EVERY 12 HOURS ORAL 06/03/17 09:00 07/03/17 08:59 06/05/17 09:04 Multivitamins (Multivitamins) 1 tab DAILY ORAL 06/03/17 09:00 07/03/17 08:59 06/05/17 09:04 Olanzapine (ZyPREXA) 5 mg DAILY ORAL 06/05/17 09:00 07/03/17 08:59 06/05/17 09:04 Patient Own Medication (Patient's Own Med) 1 ea BIAC ORAL 06/04/17 16:30 07/04/17 16:29 06/05/17 05:44 Patient Own Medication (Patient's Own Med) 1 ea BID ORAL 06/04/17 18:00 07/04/17 17:59 06/05/17 09:03 Patient Own Medication (Patient's Own Med) 2 ea TID ORAL 06/04/17 13:00 07/04/17 12:59 06/05/17 13:46 Piperacillin/ Tazobactam/ Dextrose 50 ml @ 12.5 mls/hr EVERY 8 HOURS IVPB 06/03/17 15:00 06/08/17 14:59 06/05/17 05:08 Potassium Chloride 100 ml @ 100 mls/hr Q1H IVPB 06/05/17 11:30 06/05/17 15:29 06/05/17 13:46 Vancomycin HCl (Vanco rx to dose) 1 ea DAILY PRN MISC Per rx protocol 06/03/17 14:15 07/03/17 14:14 Vancomycin HCl/ Dextrose 250 ml @ 166.667 mls/hr Q24H IVPB 06/03/17 21:00 06/08/17 20:59 06/04/17 21:19 GENE ALBERT Jun 05, 2017 14:21
[2017-06-05 16:09] VITALS: BP 127/81
--- NOTE | 2017-06-05 16:32 | Diagnostic Imaging Report ---
Indications: Altered mental status Technique: Spiral acquisitions obtained through the brain. Angled axial and coronal 5 x 5 mm slices were reconstructed. Total dose length product 1657 mGycm. CTDI vol(s) 70 mGy. Dose reduction achieved using automated exposure control Comparison: None Findings: Exam is limited by the presence of considerable motion artifact; per technologist, patient was unable hold still. No definite acute intracranial hemorrhage or edema. No mass effect or midline shift. Old lacunar infarct is seen in the right rodriguez radiata. In the left basal ganglia, there is an old lacunar infarct versus prominent perivascular space. There is marked age-related enlargement of ventricles and extra axial CSF spaces, and considerable periventricular deep white matter chronic ischemic change. Impression: Chronic and age-related changes, as described. Negative for acute intracranial bleed or mass effect. The CT scanner at [facility] is accredited by the [employer] and the scans are performed using protocols designed to limit radiation exposure to as low as reasonably achievable to attain images of sufficient resolution adequate for diagnostic evaluation.
[2017-06-05 20:00] VITALS: BP 125/81
[2017-06-05] MEDS: Atorvastatin 80mg tab ORAL SCH (21:09)
[2017-06-05] MEDS ORDERED: Tubing IV Secondary IV ONE (21:27)
[2017-06-06] VITALS (7 sets, daily range): BP systolic 120–154; BP diastolic 78–110
[2017-06-06] MEDS: DIDANOSINE ORAL SCH ×3 (06:30→17:10)
[2017-06-06 07:09] LABS: BASOPHILS % (AUTO) 0.4 % (0.0-2.0); EOSINOPHILS % (AUTO) 3.1 % (0.0-3.0); HEMATOCRIT 41.6 % (42.0-52.0); HEMOGLOBIN 14.3 G/DL (14.2-18.0); LYMPHOCYTES % (AUTO) 20.1 % (20.0-45.0); MEAN CORPUSCULAR VOLUME 97 FL (80-99); MONOCYTES % (AUTO) 6.9 % (1.0-10.0); NEUTROPHILS % (AUTO) 69.6 % (45.0-75.0); PLATELET COUNT 164 K/UL (150-450); RED BLOOD COUNT 4.27 M/UL (4.70-6.10); WHITE BLOOD COUNT 10.2 K/UL (4.8-10.8)
[2017-06-06] MEDS: Zosyn 3.375gm q8h **Extended infusion IVPB SCH ×3 (07:10→21:25)
[2017-06-06 07:12] LABS: ANION GAP 10 mmol/L (5-15); BLOOD UREA NITROGEN 11 mg/dL (7-18); CARBON DIOXIDE 27 MMOL/L (21-32); CHLORIDE 109 MMOL/L (98-107); POTASSIUM 3.7 MMOL/L (3.5-5.1); SODIUM 146 MMOL/L (136-145)
[2017-06-06] MEDS: Heparin 5000 units/ml inj SUBQ SCH ×2 (08:53→21:21)
[2017-06-06] MEDS: Metoprolol 25mg tab ORAL SCH ×3 (08:58→21:16)
[2017-06-06] MEDS: CRIXIVAN ORAL SCH ×3 (08:59→17:09)
[2017-06-06] MEDS: Sinemet 25/100 tab ORAL SCH ×3 (08:59→17:09)
[2017-06-06] MEDS: NEVIRAPINE 200 MG ORAL SCH ×3 (08:59→17:10)
--- NOTE | 2017-06-06 09:10 | General Progress Note ---
Assessment/Plan Problem List: (1) Hypernatremia ICD Codes: E87.0 - Hyperosmolality and hypernatremia SNOMED: 85022068 (2) Leukocytosis ICD Codes: D72.829 - Elevated white blood cell count, unspecified SNOMED: 569487579, 549285035 Qualifiers: Qualified Codes: D72.829 - Elevated white blood cell count, unspecified (3) Renal insufficiency ICD Codes: N28.9 - Disorder of kidney and ureter, unspecified SNOMED: 283864080, 399395881 (4) HIV (human immunodeficiency virus infection) ICD Codes: B20 - Human immunodeficiency virus [HIV] disease SNOMED: 34974180 Status: stable, progressing Assessment/Plan ivf- still with high na follow up labs abx per id psych eval resp care monitor labs encourage pos ct head negative Subjective ROS Limited/Unobtainable: Yes Constitutional: Reports: malaise, weakness HEENT: Reports: no symptoms Cardiovascular: Reports: no symptoms Respiratory: Reports: cough Gastrointestinal/Abdominal: Reports: poor appetite, poor fluid intake Genitourinary: Reports: no symptoms Neurologic/Psychiatric: Reports: pre-existing deficit Endocrine: Reports: no symptoms Hematologic/Lymphatic: Reports: anemia Allergies: Coded Allergies: No Known Allergies (Unverified , 06/02/17) All Systems: reviewed and negative except above Subjective no events. intermittent agitation. aggressive at times. labs pending poor po intake. refused meds at times. on ivf. on anxiolytics unable to comply with therapy Objective Last 24 Hour Vital Signs Date Time Temp Pulse Resp B/P (MAP) Pulse Ox O2 Delivery O2 Flow Rate FiO2 06/06/17 08:58 76 143/89 06/06/17 08:00 97.3 76 19 143/89 97 Room Air 06/06/17 04:19 98.1 80 19 127/82 94 Room Air 06/06/17 00:09 97.8 75 18 140/79 97 Room Air 06/05/17 20:00 98.2 82 17 125/81 97 Room Air 06/05/17 16:09 97.9 76 19 127/81 99 Room Air 06/05/17 11:36 97.6 70 20 120/74 98 Room Air Laboratory Tests 06/05/17 09:10: Sodium Level 147H, Potassium Level 3.1L, Chloride Level 113H, Carbon Dioxide Level 26, Anion Gap 8, Blood Urea Nitrogen 18, Creatinine 1.1, Estimat Glomerular Filtration Rate > 60, Glucose Level 111H, Calcium Level 8.9 06/06/17 05:25: Sodium Level 146H, Potassium Level 3.7, Chloride Level 109H, Carbon Dioxide Level 27, Anion Gap 10, Blood Urea Nitrogen 11, Creatinine 1.0, Estimat Glomerular Filtration Rate > 60, Glucose Level 120H, Calcium Level 9.0, White Blood Count 10.2, Red Blood Count 4.27L, Hemoglobin 14.3, Hematocrit 41.6L, Mean Corpuscular Volume 97, Mean Corpuscular Hemoglobin 33.4H, Mean Corpuscular Hemoglobin Concent 34.3, Red Cell Distribution Width 11.0L, Platelet Count 164, Mean Platelet Volume 8.5, Neutrophils (%) (Auto) 69.6, Lymphocytes (%) (Auto) 20.1, Monocytes (%) (Auto) 6.9, Eosinophils (%) (Auto) 3.1H, Basophils (%) (Auto ) 0.4 Height (Feet): 6 Height (Inches): 0.00 Weight (Pounds): 184 Objective General Appearance: WD/WN, alert Neck: supple Cardiovascular: normal rate, regular rhythm Respiratory/Chest: chest wall non-tender, lungs clear, normal breath sounds, no respiratory distress Abdomen: normal bowel sounds, non tender, soft, no organomegaly Neurologic: disoriented, aphasia Lymphatic: normal anterior cervical (L), normal anterior cervical (R), normal posterior cervical (L), normal posterior cervical (R), normal submandibular (L) , normal submandibular (R), normal supraclavicular (L), normal supraclavicular ( R), normal axillary (L), normal axillary (R), normal inguinal (L), normal inguinal (R), normal other JOSE MIGUEL KEITH Jun 06, 2017 09:10
--- NOTE | 2017-06-06 09:10 | General Progress Note ---
Assessment/Plan Problem List: (1) Hypernatremia ICD Codes: E87.0 - Hyperosmolality and hypernatremia SNOMED: 41155189 (2) Leukocytosis ICD Codes: D72.829 - Elevated white blood cell count, unspecified SNOMED: 696932438, 039511197 Qualifiers: Qualified Codes: D72.829 - Elevated white blood cell count, unspecified (3) Renal insufficiency ICD Codes: N28.9 - Disorder of kidney and ureter, unspecified SNOMED: 712515608, 447188879 (4) HIV (human immunodeficiency virus infection) ICD Codes: B20 - Human immunodeficiency virus [HIV] disease SNOMED: 96030396 Status: stable, progressing Assessment/Plan ivf- still with high na follow up labs abx per id psych eval resp care monitor labs encourage pos ct head negative Subjective ROS Limited/Unobtainable: Yes Constitutional: Reports: malaise, weakness HEENT: Reports: no symptoms Cardiovascular: Reports: no symptoms Respiratory: Reports: cough Gastrointestinal/Abdominal: Reports: poor appetite, poor fluid intake Genitourinary: Reports: no symptoms Neurologic/Psychiatric: Reports: pre-existing deficit Endocrine: Reports: no symptoms Hematologic/Lymphatic: Reports: anemia Allergies: Coded Allergies: No Known Allergies (Unverified , 06/02/17) All Systems: reviewed and negative except above Subjective no events. intermittent agitation. aggressive at times. labs pending poor po intake. refused meds at times. on ivf. on anxiolytics unable to comply with therapy Objective Last 24 Hour Vital Signs Date Time Temp Pulse Resp B/P (MAP) Pulse Ox O2 Delivery O2 Flow Rate FiO2 06/06/17 08:58 76 143/89 06/06/17 08:00 97.3 76 19 143/89 97 Room Air 06/06/17 04:19 98.1 80 19 127/82 94 Room Air 06/06/17 00:09 97.8 75 18 140/79 97 Room Air 06/05/17 20:00 98.2 82 17 125/81 97 Room Air 06/05/17 16:09 97.9 76 19 127/81 99 Room Air 06/05/17 11:36 97.6 70 20 120/74 98 Room Air Laboratory Tests 06/05/17 09:10: Sodium Level 147H, Potassium Level 3.1L, Chloride Level 113H, Carbon Dioxide Level 26, Anion Gap 8, Blood Urea Nitrogen 18, Creatinine 1.1, Estimat Glomerular Filtration Rate > 60, Glucose Level 111H, Calcium Level 8.9 06/06/17 05:25: Sodium Level 146H, Potassium Level 3.7, Chloride Level 109H, Carbon Dioxide Level 27, Anion Gap 10, Blood Urea Nitrogen 11, Creatinine 1.0, Estimat Glomerular Filtration Rate > 60, Glucose Level 120H, Calcium Level 9.0, White Blood Count 10.2, Red Blood Count 4.27L, Hemoglobin 14.3, Hematocrit 41.6L, Mean Corpuscular Volume 97, Mean Corpuscular Hemoglobin 33.4H, Mean Corpuscular Hemoglobin Concent 34.3, Red Cell Distribution Width 11.0L, Platelet Count 164, Mean Platelet Volume 8.5, Neutrophils (%) (Auto) 69.6, Lymphocytes (%) (Auto) 20.1, Monocytes (%) (Auto) 6.9, Eosinophils (%) (Auto) 3.1H, Basophils (%) (Auto ) 0.4 Height (Feet): 6 Height (Inches): 0.00 Weight (Pounds): 184 Objective General Appearance: WD/WN, alert Neck: supple Cardiovascular: normal rate, regular rhythm Respiratory/Chest: chest wall non-tender, lungs clear, normal breath sounds, no respiratory distress Abdomen: normal bowel sounds, non tender, soft, no organomegaly Neurologic: disoriented, aphasia Lymphatic: normal anterior cervical (L), normal anterior cervical (R), normal posterior cervical (L), normal posterior cervical (R), normal submandibular (L) , normal submandibular (R), normal supraclavicular (L), normal supraclavicular ( R), normal axillary (L), normal axillary (R), normal inguinal (L), normal inguinal (R), normal other JOSE MIGUEL KEITH Jun 06, 2017 09:10
--- NOTE | 2017-06-06 09:10 | General Progress Note ---
Assessment/Plan Problem List: (1) Hypernatremia ICD Codes: E87.0 - Hyperosmolality and hypernatremia SNOMED: 57054978 (2) Leukocytosis ICD Codes: D72.829 - Elevated white blood cell count, unspecified SNOMED: 188667775, 234134271 Qualifiers: Qualified Codes: D72.829 - Elevated white blood cell count, unspecified (3) Renal insufficiency ICD Codes: N28.9 - Disorder of kidney and ureter, unspecified SNOMED: 355626193, 225368539 (4) HIV (human immunodeficiency virus infection) ICD Codes: B20 - Human immunodeficiency virus [HIV] disease SNOMED: 25521683 Status: stable, progressing Assessment/Plan ivf- still with high na follow up labs abx per id psych eval resp care monitor labs encourage pos ct head negative Subjective ROS Limited/Unobtainable: Yes Constitutional: Reports: malaise, weakness HEENT: Reports: no symptoms Cardiovascular: Reports: no symptoms Respiratory: Reports: cough Gastrointestinal/Abdominal: Reports: poor appetite, poor fluid intake Genitourinary: Reports: no symptoms Neurologic/Psychiatric: Reports: pre-existing deficit Endocrine: Reports: no symptoms Hematologic/Lymphatic: Reports: anemia Allergies: Coded Allergies: No Known Allergies (Unverified , 06/02/17) All Systems: reviewed and negative except above Subjective no events. intermittent agitation. aggressive at times. labs pending poor po intake. refused meds at times. on ivf. on anxiolytics unable to comply with therapy Objective Last 24 Hour Vital Signs Date Time Temp Pulse Resp B/P (MAP) Pulse Ox O2 Delivery O2 Flow Rate FiO2 06/06/17 08:58 76 143/89 06/06/17 08:00 97.3 76 19 143/89 97 Room Air 06/06/17 04:19 98.1 80 19 127/82 94 Room Air 06/06/17 00:09 97.8 75 18 140/79 97 Room Air 06/05/17 20:00 98.2 82 17 125/81 97 Room Air 06/05/17 16:09 97.9 76 19 127/81 99 Room Air 06/05/17 11:36 97.6 70 20 120/74 98 Room Air Laboratory Tests 06/05/17 09:10: Sodium Level 147H, Potassium Level 3.1L, Chloride Level 113H, Carbon Dioxide Level 26, Anion Gap 8, Blood Urea Nitrogen 18, Creatinine 1.1, Estimat Glomerular Filtration Rate > 60, Glucose Level 111H, Calcium Level 8.9 06/06/17 05:25: Sodium Level 146H, Potassium Level 3.7, Chloride Level 109H, Carbon Dioxide Level 27, Anion Gap 10, Blood Urea Nitrogen 11, Creatinine 1.0, Estimat Glomerular Filtration Rate > 60, Glucose Level 120H, Calcium Level 9.0, White Blood Count 10.2, Red Blood Count 4.27L, Hemoglobin 14.3, Hematocrit 41.6L, Mean Corpuscular Volume 97, Mean Corpuscular Hemoglobin 33.4H, Mean Corpuscular Hemoglobin Concent 34.3, Red Cell Distribution Width 11.0L, Platelet Count 164, Mean Platelet Volume 8.5, Neutrophils (%) (Auto) 69.6, Lymphocytes (%) (Auto) 20.1, Monocytes (%) (Auto) 6.9, Eosinophils (%) (Auto) 3.1H, Basophils (%) (Auto ) 0.4 Height (Feet): 6 Height (Inches): 0.00 Weight (Pounds): 184 Objective General Appearance: WD/WN, alert Neck: supple Cardiovascular: normal rate, regular rhythm Respiratory/Chest: chest wall non-tender, lungs clear, normal breath sounds, no respiratory distress Abdomen: normal bowel sounds, non tender, soft, no organomegaly Neurologic: disoriented, aphasia Lymphatic: normal anterior cervical (L), normal anterior cervical (R), normal posterior cervical (L), normal posterior cervical (R), normal submandibular (L) , normal submandibular (R), normal supraclavicular (L), normal supraclavicular ( R), normal axillary (L), normal axillary (R), normal inguinal (L), normal inguinal (R), normal other JOSE MIGUEL KEITH Jun 06, 2017 09:10
[2017-06-06] MEDS ORDERED: Tubing IV Secondary IV ONE (15:24)
[2017-06-06] MEDS ORDERED: D5W 275ml ONE (15:24)
[2017-06-06] MEDS: Atorvastatin 80mg tab ORAL SCH (21:16)
[2017-06-07] VITALS: BP 128/89
[2017-06-07 03:29] VITALS: BP 113/85
[2017-06-07] MEDS: Zosyn 3.375gm q8h **Extended infusion IVPB SCH ×2 (05:04→14:00)
[2017-06-07] MEDS: DIDANOSINE ORAL SCH ×2 (07:03→17:17)
[2017-06-07 08:00] VITALS: BP 141/95
[2017-06-07] MEDS: Metoprolol 25mg tab ORAL SCH ×2 (10:09→21:54)
[2017-06-07] MEDS: Sinemet 25/100 tab ORAL SCH ×3 (10:09→17:16)
[2017-06-07] MEDS: CRIXIVAN ORAL SCH ×3 (10:10→17:16)
[2017-06-07] MEDS: NEVIRAPINE 200 MG ORAL SCH ×2 (10:10→17:17)
[2017-06-07] MEDS: Heparin 5000 units/ml inj SUBQ SCH ×2 (10:11→21:57)
[2017-06-07] MEDS ORDERED: NS 275ml ONE (11:46)
[2017-06-07 12:00] VITALS: BP 137/85
--- NOTE | 2017-06-07 12:12 | General Progress Note ---
Assessment/Plan Problem List: (1) Hypernatremia ICD Codes: E87.0 - Hyperosmolality and hypernatremia SNOMED: 21719561 (2) Leukocytosis ICD Codes: D72.829 - Elevated white blood cell count, unspecified SNOMED: 898587002, 342185716 Qualifiers: Qualified Codes: D72.829 - Elevated white blood cell count, unspecified (3) Renal insufficiency ICD Codes: N28.9 - Disorder of kidney and ureter, unspecified SNOMED: 730005016, 822991853 (4) HIV (human immunodeficiency virus infection) ICD Codes: B20 - Human immunodeficiency virus [HIV] disease SNOMED: 35288407 Status: stable Assessment/Plan ivf- check labs follow up labs abx per id psych eval resp care monitor labs encourage pos ct head negative will cont to monitor Subjective ROS Limited/Unobtainable: Yes Constitutional: Reports: malaise, weakness HEENT: Reports: no symptoms Cardiovascular: Reports: no symptoms Respiratory: Reports: no symptoms Gastrointestinal/Abdominal: Reports: difficulty swallowing, poor appetite, poor fluid intake Genitourinary: Reports: no symptoms Neurologic/Psychiatric: Reports: pre-existing deficit Endocrine: Reports: no symptoms Hematologic/Lymphatic: Reports: anemia Allergies: Coded Allergies: No Known Allergies (Unverified , 06/02/17) All Systems: reviewed and negative except above Subjective no events. intermittent agitation. aggressive at times. poor po intake. refused meds at times. on ivf. on anxiolytics unable to comply with therapy ct negative per SO, pt is still altered compared to baseline Objective Last 24 Hour Vital Signs Date Time Temp Pulse Resp B/P (MAP) Pulse Ox O2 Delivery O2 Flow Rate FiO2 06/07/17 10:09 89 113/85 06/07/17 08:00 97.3 81 17 141/95 97 Room Air 06/07/17 03:29 98.8 89 17 113/85 97 Room Air 06/07/17 00:00 98.8 80 19 128/89 98 Room Air 06/06/17 21:16 85 120/78 06/06/17 20:06 97.4 85 19 120/78 98 Room Air 06/06/17 16:00 97.9 76 19 132/81 99 Room Air 06/06/17 13:00 97.8 94 19 139/92 98 Room Air Height (Feet): 6 Height (Inches): 0.00 Weight (Pounds): 184 Objective General Appearance: WD/WN, alert Neck: supple Cardiovascular: normal rate, regular rhythm Respiratory/Chest: chest wall non-tender, lungs clear, normal breath sounds, no respiratory distress Abdomen: normal bowel sounds, non tender, soft, no organomegaly Neurologic: disoriented, aphasia Lymphatic: normal anterior cervical (L), normal anterior cervical (R), normal posterior cervical (L), normal posterior cervical (R), normal submandibular (L) , normal submandibular (R), normal supraclavicular (L), normal supraclavicular ( R), normal axillary (L), normal axillary (R), normal inguinal (L), normal inguinal (R), normal other JOSE MIGUEL KEITH Jun 07, 2017 12:12
--- NOTE | 2017-06-07 12:12 | General Progress Note ---
Assessment/Plan Problem List: (1) Hypernatremia ICD Codes: E87.0 - Hyperosmolality and hypernatremia SNOMED: 09945653 (2) Leukocytosis ICD Codes: D72.829 - Elevated white blood cell count, unspecified SNOMED: 374481671, 268179782 Qualifiers: Qualified Codes: D72.829 - Elevated white blood cell count, unspecified (3) Renal insufficiency ICD Codes: N28.9 - Disorder of kidney and ureter, unspecified SNOMED: 352627947, 598156596 (4) HIV (human immunodeficiency virus infection) ICD Codes: B20 - Human immunodeficiency virus [HIV] disease SNOMED: 82967920 Status: stable Assessment/Plan ivf- check labs follow up labs abx per id psych eval resp care monitor labs encourage pos ct head negative will cont to monitor Subjective ROS Limited/Unobtainable: Yes Constitutional: Reports: malaise, weakness HEENT: Reports: no symptoms Cardiovascular: Reports: no symptoms Respiratory: Reports: no symptoms Gastrointestinal/Abdominal: Reports: difficulty swallowing, poor appetite, poor fluid intake Genitourinary: Reports: no symptoms Neurologic/Psychiatric: Reports: pre-existing deficit Endocrine: Reports: no symptoms Hematologic/Lymphatic: Reports: anemia Allergies: Coded Allergies: No Known Allergies (Unverified , 06/02/17) All Systems: reviewed and negative except above Subjective no events. intermittent agitation. aggressive at times. poor po intake. refused meds at times. on ivf. on anxiolytics unable to comply with therapy ct negative per SO, pt is still altered compared to baseline Objective Last 24 Hour Vital Signs Date Time Temp Pulse Resp B/P (MAP) Pulse Ox O2 Delivery O2 Flow Rate FiO2 06/07/17 10:09 89 113/85 06/07/17 08:00 97.3 81 17 141/95 97 Room Air 06/07/17 03:29 98.8 89 17 113/85 97 Room Air 06/07/17 00:00 98.8 80 19 128/89 98 Room Air 06/06/17 21:16 85 120/78 06/06/17 20:06 97.4 85 19 120/78 98 Room Air 06/06/17 16:00 97.9 76 19 132/81 99 Room Air 06/06/17 13:00 97.8 94 19 139/92 98 Room Air Height (Feet): 6 Height (Inches): 0.00 Weight (Pounds): 184 Objective General Appearance: WD/WN, alert Neck: supple Cardiovascular: normal rate, regular rhythm Respiratory/Chest: chest wall non-tender, lungs clear, normal breath sounds, no respiratory distress Abdomen: normal bowel sounds, non tender, soft, no organomegaly Neurologic: disoriented, aphasia Lymphatic: normal anterior cervical (L), normal anterior cervical (R), normal posterior cervical (L), normal posterior cervical (R), normal submandibular (L) , normal submandibular (R), normal supraclavicular (L), normal supraclavicular ( R), normal axillary (L), normal axillary (R), normal inguinal (L), normal inguinal (R), normal other JOSE MIGUEL KEITH Jun 07, 2017 12:12
--- NOTE | 2017-06-07 12:12 | General Progress Note ---
Assessment/Plan Problem List: (1) Hypernatremia ICD Codes: E87.0 - Hyperosmolality and hypernatremia SNOMED: 12666192 (2) Leukocytosis ICD Codes: D72.829 - Elevated white blood cell count, unspecified SNOMED: 149016608, 170292761 Qualifiers: Qualified Codes: D72.829 - Elevated white blood cell count, unspecified (3) Renal insufficiency ICD Codes: N28.9 - Disorder of kidney and ureter, unspecified SNOMED: 062308155, 078356588 (4) HIV (human immunodeficiency virus infection) ICD Codes: B20 - Human immunodeficiency virus [HIV] disease SNOMED: 13184978 Status: stable Assessment/Plan ivf- check labs follow up labs abx per id psych eval resp care monitor labs encourage pos ct head negative will cont to monitor Subjective ROS Limited/Unobtainable: Yes Constitutional: Reports: malaise, weakness HEENT: Reports: no symptoms Cardiovascular: Reports: no symptoms Respiratory: Reports: no symptoms Gastrointestinal/Abdominal: Reports: difficulty swallowing, poor appetite, poor fluid intake Genitourinary: Reports: no symptoms Neurologic/Psychiatric: Reports: pre-existing deficit Endocrine: Reports: no symptoms Hematologic/Lymphatic: Reports: anemia Allergies: Coded Allergies: No Known Allergies (Unverified , 06/02/17) All Systems: reviewed and negative except above Subjective no events. intermittent agitation. aggressive at times. poor po intake. refused meds at times. on ivf. on anxiolytics unable to comply with therapy ct negative per SO, pt is still altered compared to baseline Objective Last 24 Hour Vital Signs Date Time Temp Pulse Resp B/P (MAP) Pulse Ox O2 Delivery O2 Flow Rate FiO2 06/07/17 10:09 89 113/85 06/07/17 08:00 97.3 81 17 141/95 97 Room Air 06/07/17 03:29 98.8 89 17 113/85 97 Room Air 06/07/17 00:00 98.8 80 19 128/89 98 Room Air 06/06/17 21:16 85 120/78 06/06/17 20:06 97.4 85 19 120/78 98 Room Air 06/06/17 16:00 97.9 76 19 132/81 99 Room Air 06/06/17 13:00 97.8 94 19 139/92 98 Room Air Height (Feet): 6 Height (Inches): 0.00 Weight (Pounds): 184 Objective General Appearance: WD/WN, alert Neck: supple Cardiovascular: normal rate, regular rhythm Respiratory/Chest: chest wall non-tender, lungs clear, normal breath sounds, no respiratory distress Abdomen: normal bowel sounds, non tender, soft, no organomegaly Neurologic: disoriented, aphasia Lymphatic: normal anterior cervical (L), normal anterior cervical (R), normal posterior cervical (L), normal posterior cervical (R), normal submandibular (L) , normal submandibular (R), normal supraclavicular (L), normal supraclavicular ( R), normal axillary (L), normal axillary (R), normal inguinal (L), normal inguinal (R), normal other JOSE MIGUEL KEITH Jun 07, 2017 12:12
--- NOTE | 2017-06-07 14:20 | Infectious Diseases Prog Note ---
Assessment/Plan Assessment/Plan A) 1) sepsis, ? asp pna/hcap pna, leukocytosis, fevers, michael, dehydration, hypernatremia - ? silent aspiration - blood cultures - negative, chest x-ray negative - leukocytosis and fever improved, sepsis resolving 2) hiv, ? cd4/vl - cd4 pending, reorder 3) Parkinson's, dysphagia, dementia, htn, psychosis, aphasia, dm, depression , hyperlipidemia 4) aspiration risk 5) allergies - nka, sh-negative, mar noted, notes and records reviewed 6) d/w RN P) 1) iv zosyn, change to po augmentin for 3 days 2) watch labs and check cd4 3) anti-retrovirals - indinavir, ddi, nevirapine, home meds 4) continue treatment per primary and consultants 5) orders entered and noted Subjective Constitutional: Reports: fatigue, other - more alert , Denies: fever HEENT: Denies: congestion Respiratory: Denies: shortness of breath Cardiovascular: Denies: chest pain Gastrointestinal/Abdominal: Denies: nausea Genitourinary: Denies: dysuria Neurologic: Denies: headache Psychiatric: Denies: depression Skin: Denies: rash Hematologic: Denies: bleeding Musculoskeletal: Denies: pain Allergies: Coded Allergies: No Known Allergies (Unverified , 06/02/17) Objective Vital Signs Last 24 Hour Vital Signs Date Time Temp Pulse Resp B/P (MAP) Pulse Ox O2 Delivery O2 Flow Rate FiO2 06/07/17 12:00 98.2 88 18 137/85 97 Room Air 06/07/17 10:09 89 113/85 06/07/17 08:00 97.3 81 17 141/95 97 Room Air 06/07/17 03:29 98.8 89 17 113/85 97 Room Air 06/07/17 00:00 98.8 80 19 128/89 98 Room Air 06/06/17 21:16 85 120/78 06/06/17 20:06 97.4 85 19 120/78 98 Room Air 06/06/17 16:00 97.9 76 19 132/81 99 Room Air Height (Feet): 6 Height (Inches): 0.00 Weight (Pounds): 184 General Appearance: no acute distress HEENT: normocephalic, atraumatic, anicteric, mucous membranes moist, EOMI, pharynx normal, supple, no JVD Respiratory/Chest: lungs clear, normal breath sounds, no respiratory distress, no accessory muscle use, other - occ rhonchi only Cardiovascular: normal rate, regular rhythm, no gallop/murmur, no JVD Abdomen: normal bowel sounds, soft, non tender, no organomegaly, non distended Genitourinary: other - + tidwell - urine clear Extremities: no cyanosis Skin: no rash Neurologic/Psychiatric: [employer] II-XII grossly normal, alert, responsive Lymphatic: no neck adenopathy Musculoskeletal: no effusion Objective 06/04 - chest x-ray Comparison: 06/03/2017 Findings: Patient's chin obscures the upper mediastinum and medial lung apices. The lungs and pleural spaces are clear. The heart size is normal. There is a right clavicular fracture deformity again demonstrated. Contrast from recent video swallowing study is seen within the colon. Findings are otherwise unchanged Impression: No acute process Microbiology Date/Time Source Procedure Growth Status 06/03/17 00:09 Blood Blood Culture - Preliminary NO GROWTH AFTER 4 DAYS Resulted 06/03/17 00:09 Nasal Nares MRSA Culture - Final NO METHICILLIN RESISTANT STAPH AUREUS... Complete 06/03/17 00:09 Rectum VRE Culture - Final NO VANCOMYCIN RESISTANT ENTEROCOCCUS ... Complete Labs Test 06/05/17 09:10 06/06/17 05:25 Sodium Level 147 MMOL/L (136-145) 146 MMOL/L (136-145) Potassium Level 3.1 MMOL/L (3.5-5.1) 3.7 MMOL/L (3.5-5.1) Chloride Level 113 MMOL/L (98-107) 109 MMOL/L (98-107) Carbon Dioxide Level 26 MMOL/L (21-32) 27 MMOL/L (21-32) Anion Gap 8 mmol/L (5-15) 10 mmol/L (5-15) Blood Urea Nitrogen 18 mg/dL (7-18) 11 mg/dL (7-18) Creatinine 1.1 MG/DL (0.55-1.30) 1.0 MG/DL (0.55-1.30) Estimat Glomerular Filtration Rate > 60 mL/min (>60) > 60 mL/min (>60) Glucose Level 111 MG/DL (74-106) 120 MG/DL (74-106) Calcium Level 8.9 MG/DL (8.5-10.1) 9.0 MG/DL (8.5-10.1) White Blood Count 10.2 K/UL (4.8-10.8) Red Blood Count 4.27 M/UL (4.70-6.10) Hemoglobin 14.3 G/DL (14.2-18.0) Hematocrit 41.6 % (42.0-52.0) Mean Corpuscular Volume 97 FL (80-99) Mean Corpuscular Hemoglobin 33.4 PG (27.0-31.0) Mean Corpuscular Hemoglobin Concent 34.3 G/DL (32.0-36.0) Red Cell Distribution Width 11.0 % (11.6-14.8) Platelet Count 164 K/UL (150-450) Mean Platelet Volume 8.5 FL (6.5-10.1) Neutrophils (%) (Auto) 69.6 % (45.0-75.0) Lymphocytes (%) (Auto) 20.1 % (20.0-45.0) Monocytes (%) (Auto) 6.9 % (1.0-10.0) Eosinophils (%) (Auto) 3.1 % (0.0-3.0) Basophils (%) (Auto) 0.4 % (0.0-2.0) Current Medications Medications (Trade) Dose Ordered Sig/Kelly Route PRN Reason Start Time Stop Time Status Last Admin Dose Admin Acetaminophen (Tylenol) 500 mg Q4HR PRN ORAL Mild Pain (Pain Scale 1-3) 06/03/17 05:45 07/03/17 05:44 Atorvastatin Calcium (Lipitor) 80 mg BEDTIME ORAL 06/03/17 21:00 07/03/17 20:59 06/06/17 21:16 Carbidopa/Levodopa (Sinemet 25/100) 1 ea THREE TIMES A DAY ORAL 06/03/17 13:00 07/03/17 12:59 06/07/17 13:57 Dextrose 1,000 ml @ 125 mls/hr Q8H IV 06/04/17 12:45 07/04/17 12:44 06/07/17 05:03 Guaifenesin (Robitussin) 10 mg TIDPRN PRN ORAL For Cough 06/03/17 05:45 07/03/17 05:44 Heparin Sodium (Porcine) (Heparin 5000 units/ml) 5,000 units EVERY 12 HOURS SUBQ 06/03/17 09:00 07/03/17 08:59 06/07/17 10:11 Metoprolol Tartrate (Lopressor) 25 mg EVERY 12 HOURS ORAL 06/03/17 09:00 07/03/17 08:59 06/07/17 10:09 Multivitamins (Multivitamins) 1 tab DAILY ORAL 06/03/17 09:00 07/03/17 08:59 06/07/17 10:09 Olanzapine (ZyPREXA) 5 mg DAILY ORAL 06/05/17 09:00 07/03/17 08:59 06/07/17 10:09 Patient Own Medication (Patient's Own Med) 1 ea BIAC ORAL 06/04/17 16:30 07/04/17 16:29 06/07/17 07:03 Patient Own Medication (Patient's Own Med) 1 ea BID ORAL 06/04/17 18:00 07/04/17 17:59 06/07/17 10:10 Patient Own Medication (Patient's Own Med) 2 ea TID ORAL 06/04/17 13:00 07/04/17 12:59 06/07/17 13:57 Piperacillin/ Tazobactam/ Dextrose 50 ml @ 12.5 mls/hr EVERY 8 HOURS IVPB 06/03/17 15:00 06/08/17 14:59 06/07/17 05:04 GENE ALBERT Jun 07, 2017 14:20
[2017-06-07 16:00] VITALS: BP 150/90
[2017-06-07] MEDS: Augmentin 875mg Tab ORAL SCH (17:29)
[2017-06-07] MEDS: Atorvastatin 80mg tab ORAL SCH (17:30)
[2017-06-07 20:00] VITALS: BP 131/86
[2017-06-08 00:45] VITALS: BP 141/100
[2017-06-08] MEDS: DIDANOSINE ORAL SCH ×4 (06:30→17:00)
[2017-06-08 07:01] LABS: BASOPHILS % (AUTO) 0.5 % (0.0-2.0); EOSINOPHILS % (AUTO) 3.5 % (0.0-3.0); HEMATOCRIT 44.1 % (42.0-52.0); HEMOGLOBIN 15.2 G/DL (14.2-18.0); LYMPHOCYTES % (AUTO) 20.4 % (20.0-45.0); MEAN CORPUSCULAR VOLUME 95 FL (80-99); NEUTROPHILS % (AUTO) 67.5 % (45.0-75.0); PLATELET COUNT 206 K/UL (150-450); RED BLOOD COUNT 4.62 M/UL (4.70-6.10); RED CELL DISTRIBUTION WIDTH 10.8 % (11.6-14.8); WHITE BLOOD COUNT 9.6 K/UL (4.8-10.8)
[2017-06-08 07:36] LABS: ALANINE AMINOTRANSFERASE 47 U/L (12-78); ALBUMIN 2.8 G/DL (3.4-5.0); ALBUMIN/GLOBULIN RATIO 0.7 (1.0-2.7); ALKALINE PHOSPHATASE 77 U/L (46-116); ANION GAP 9 mmol/L (5-15); ASPARTATE AMINO TRANSFERASE 36 U/L (15-37); BILIRUBIN,TOTAL 0.4 MG/DL (0.2-1.0); BLOOD UREA NITROGEN 7 mg/dL (7-18); CALCIUM 8.9 MG/DL (8.5-10.1); CARBON DIOXIDE 26 MMOL/L (21-32); CHLORIDE 104 MMOL/L (98-107); CREATININE 0.9 MG/DL (0.55-1.30); POTASSIUM 3.3 MMOL/L (3.5-5.1); SODIUM 139 MMOL/L (136-145)
[2017-06-08 07:40] VITALS: BP 157/98
--- NOTE | 2017-06-08 08:52 | General Progress Note ---
Assessment/Plan Problem List: (1) Hypernatremia ICD Codes: E87.0 - Hyperosmolality and hypernatremia SNOMED: 71792295 (2) Leukocytosis ICD Codes: D72.829 - Elevated white blood cell count, unspecified SNOMED: 334507471, 013935948 Qualifiers: Qualified Codes: D72.829 - Elevated white blood cell count, unspecified (3) Renal insufficiency ICD Codes: N28.9 - Disorder of kidney and ureter, unspecified SNOMED: 211129639, 812938109 (4) HIV (human immunodeficiency virus infection) ICD Codes: B20 - Human immunodeficiency virus [HIV] disease SNOMED: 94641454 Status: stable, progressing Assessment/Plan ivf if agrees to iv follow up labs abx per id resp care monitor labs encourage pos ct head negative will cont to monitor ?dc planning Subjective ROS Limited/Unobtainable: Yes Constitutional: Reports: malaise, weakness HEENT: Reports: no symptoms Cardiovascular: Reports: no symptoms Respiratory: Reports: no symptoms Gastrointestinal/Abdominal: Reports: no symptoms Genitourinary: Reports: no symptoms Neurologic/Psychiatric: Reports: no symptoms Endocrine: Reports: no symptoms Allergies: Coded Allergies: No Known Allergies (Unverified , 06/02/17) All Systems: reviewed and negative except above Subjective no events. intermittent agitation. aggressive at times. poor po intake. refused meds at times. on ivf. on anxiolytics unable to comply with therapy ct negative per SO, pt is still altered compared to baseline refusing iv placement Objective Last 24 Hour Vital Signs Date Time Temp Pulse Resp B/P (MAP) Pulse Ox O2 Delivery O2 Flow Rate FiO2 06/08/17 07:40 97.2 80 18 157/98 97 Room Air 06/08/17 00:45 98.7 88 20 141/100 97 Room Air 06/07/17 21:54 83 131/86 06/07/17 20:00 97.2 83 16 131/86 93 Room Air 06/07/17 16:00 98.6 72 20 150/90 96 Room Air 06/07/17 12:00 98.2 88 18 137/85 97 Room Air 06/07/17 10:09 89 113/85 Intake and Output 06/08/17 06/09/17 19:00 07:00 # Bowel Movements 1 Laboratory Tests 06/08/17 06:00: White Blood Count 9.6, Red Blood Count 4.62L, Hemoglobin 15.2, Hematocrit 44.1, Mean Corpuscular Volume 95, Mean Corpuscular Hemoglobin 32.8H, Mean Corpuscular Hemoglobin Concent 34.4, Red Cell Distribution Width 10.8L, Platelet Count 206, Mean Platelet Volume 7.4, Neutrophils (%) (Auto) 67.5, Lymphocytes (%) (Auto) 20.4, Monocytes (%) (Auto) 8.0, Eosinophils (%) (Auto) 3.5H, Basophils (%) (Auto ) 0.5, Lymphocytes [Pending], Sodium Level 139, Potassium Level 3.3L, Chloride Level 104, Carbon Dioxide Level 26, Anion Gap 9, Blood Urea Nitrogen 7, Creatinine 0.9, Estimat Glomerular Filtration Rate > 60, Glucose Level 106, Calcium Level 8.9, Total Bilirubin 0.4, Aspartate Amino Transf (AST/SGOT) 36, Alanine Aminotransferase (ALT/SGPT) 47, Alkaline Phosphatase 77, Total Protein 6.8, Albumin 2.8L, Globulin 4.0, Albumin/Globulin Ratio 0.7L, Percent CD3 Cells [Pending], Absolute CD3 Count [Pending], Percent CD4 Cells [Pending], Absolute CD4 Count [Pending], T-Lymphocyte CD4/CD8 Ratio [Pending], Percent CD8 Cells [ Pending], Absolute CD8 Count [Pending] Height (Feet): 6 Height (Inches): 0.00 Weight (Pounds): 184 Objective General Appearance: WD/WN, alert Neck: supple Cardiovascular: normal rate, regular rhythm Respiratory/Chest: chest wall non-tender, lungs clear, normal breath sounds, no respiratory distress Abdomen: normal bowel sounds, non tender, soft, no organomegaly Neurologic: disoriented, aphasia Lymphatic: normal anterior cervical (L), normal anterior cervical (R), normal posterior cervical (L), normal posterior cervical (R), normal submandibular (L) , normal submandibular (R), normal supraclavicular (L), normal supraclavicular ( R), normal axillary (L), normal axillary (R), normal inguinal (L), normal inguinal (R), normal other JOSE MIGUEL KEITH Jun 08, 2017 08:52
--- NOTE | 2017-06-08 08:52 | General Progress Note ---
Assessment/Plan Problem List: (1) Hypernatremia ICD Codes: E87.0 - Hyperosmolality and hypernatremia SNOMED: 22403118 (2) Leukocytosis ICD Codes: D72.829 - Elevated white blood cell count, unspecified SNOMED: 140280221, 248751059 Qualifiers: Qualified Codes: D72.829 - Elevated white blood cell count, unspecified (3) Renal insufficiency ICD Codes: N28.9 - Disorder of kidney and ureter, unspecified SNOMED: 440678791, 132113932 (4) HIV (human immunodeficiency virus infection) ICD Codes: B20 - Human immunodeficiency virus [HIV] disease SNOMED: 05199195 Status: stable, progressing Assessment/Plan ivf if agrees to iv follow up labs abx per id resp care monitor labs encourage pos ct head negative will cont to monitor ?dc planning Subjective ROS Limited/Unobtainable: Yes Constitutional: Reports: malaise, weakness HEENT: Reports: no symptoms Cardiovascular: Reports: no symptoms Respiratory: Reports: no symptoms Gastrointestinal/Abdominal: Reports: no symptoms Genitourinary: Reports: no symptoms Neurologic/Psychiatric: Reports: no symptoms Endocrine: Reports: no symptoms Allergies: Coded Allergies: No Known Allergies (Unverified , 06/02/17) All Systems: reviewed and negative except above Subjective no events. intermittent agitation. aggressive at times. poor po intake. refused meds at times. on ivf. on anxiolytics unable to comply with therapy ct negative per SO, pt is still altered compared to baseline refusing iv placement Objective Last 24 Hour Vital Signs Date Time Temp Pulse Resp B/P (MAP) Pulse Ox O2 Delivery O2 Flow Rate FiO2 06/08/17 07:40 97.2 80 18 157/98 97 Room Air 06/08/17 00:45 98.7 88 20 141/100 97 Room Air 06/07/17 21:54 83 131/86 06/07/17 20:00 97.2 83 16 131/86 93 Room Air 06/07/17 16:00 98.6 72 20 150/90 96 Room Air 06/07/17 12:00 98.2 88 18 137/85 97 Room Air 06/07/17 10:09 89 113/85 Intake and Output 06/08/17 06/09/17 19:00 07:00 # Bowel Movements 1 Laboratory Tests 06/08/17 06:00: White Blood Count 9.6, Red Blood Count 4.62L, Hemoglobin 15.2, Hematocrit 44.1, Mean Corpuscular Volume 95, Mean Corpuscular Hemoglobin 32.8H, Mean Corpuscular Hemoglobin Concent 34.4, Red Cell Distribution Width 10.8L, Platelet Count 206, Mean Platelet Volume 7.4, Neutrophils (%) (Auto) 67.5, Lymphocytes (%) (Auto) 20.4, Monocytes (%) (Auto) 8.0, Eosinophils (%) (Auto) 3.5H, Basophils (%) (Auto ) 0.5, Lymphocytes [Pending], Sodium Level 139, Potassium Level 3.3L, Chloride Level 104, Carbon Dioxide Level 26, Anion Gap 9, Blood Urea Nitrogen 7, Creatinine 0.9, Estimat Glomerular Filtration Rate > 60, Glucose Level 106, Calcium Level 8.9, Total Bilirubin 0.4, Aspartate Amino Transf (AST/SGOT) 36, Alanine Aminotransferase (ALT/SGPT) 47, Alkaline Phosphatase 77, Total Protein 6.8, Albumin 2.8L, Globulin 4.0, Albumin/Globulin Ratio 0.7L, Percent CD3 Cells [Pending], Absolute CD3 Count [Pending], Percent CD4 Cells [Pending], Absolute CD4 Count [Pending], T-Lymphocyte CD4/CD8 Ratio [Pending], Percent CD8 Cells [ Pending], Absolute CD8 Count [Pending] Height (Feet): 6 Height (Inches): 0.00 Weight (Pounds): 184 Objective General Appearance: WD/WN, alert Neck: supple Cardiovascular: normal rate, regular rhythm Respiratory/Chest: chest wall non-tender, lungs clear, normal breath sounds, no respiratory distress Abdomen: normal bowel sounds, non tender, soft, no organomegaly Neurologic: disoriented, aphasia Lymphatic: normal anterior cervical (L), normal anterior cervical (R), normal posterior cervical (L), normal posterior cervical (R), normal submandibular (L) , normal submandibular (R), normal supraclavicular (L), normal supraclavicular ( R), normal axillary (L), normal axillary (R), normal inguinal (L), normal inguinal (R), normal other JOSE MIGUEL KEITH Jun 08, 2017 08:52
--- NOTE | 2017-06-08 08:52 | General Progress Note ---
Assessment/Plan Problem List: (1) Hypernatremia ICD Codes: E87.0 - Hyperosmolality and hypernatremia SNOMED: 10986030 (2) Leukocytosis ICD Codes: D72.829 - Elevated white blood cell count, unspecified SNOMED: 571579116, 056100240 Qualifiers: Qualified Codes: D72.829 - Elevated white blood cell count, unspecified (3) Renal insufficiency ICD Codes: N28.9 - Disorder of kidney and ureter, unspecified SNOMED: 297687465, 674803278 (4) HIV (human immunodeficiency virus infection) ICD Codes: B20 - Human immunodeficiency virus [HIV] disease SNOMED: 05402978 Status: stable, progressing Assessment/Plan ivf if agrees to iv follow up labs abx per id resp care monitor labs encourage pos ct head negative will cont to monitor ?dc planning Subjective ROS Limited/Unobtainable: Yes Constitutional: Reports: malaise, weakness HEENT: Reports: no symptoms Cardiovascular: Reports: no symptoms Respiratory: Reports: no symptoms Gastrointestinal/Abdominal: Reports: no symptoms Genitourinary: Reports: no symptoms Neurologic/Psychiatric: Reports: no symptoms Endocrine: Reports: no symptoms Allergies: Coded Allergies: No Known Allergies (Unverified , 06/02/17) All Systems: reviewed and negative except above Subjective no events. intermittent agitation. aggressive at times. poor po intake. refused meds at times. on ivf. on anxiolytics unable to comply with therapy ct negative per SO, pt is still altered compared to baseline refusing iv placement Objective Last 24 Hour Vital Signs Date Time Temp Pulse Resp B/P (MAP) Pulse Ox O2 Delivery O2 Flow Rate FiO2 06/08/17 07:40 97.2 80 18 157/98 97 Room Air 06/08/17 00:45 98.7 88 20 141/100 97 Room Air 06/07/17 21:54 83 131/86 06/07/17 20:00 97.2 83 16 131/86 93 Room Air 06/07/17 16:00 98.6 72 20 150/90 96 Room Air 06/07/17 12:00 98.2 88 18 137/85 97 Room Air 06/07/17 10:09 89 113/85 Intake and Output 06/08/17 06/09/17 19:00 07:00 # Bowel Movements 1 Laboratory Tests 06/08/17 06:00: White Blood Count 9.6, Red Blood Count 4.62L, Hemoglobin 15.2, Hematocrit 44.1, Mean Corpuscular Volume 95, Mean Corpuscular Hemoglobin 32.8H, Mean Corpuscular Hemoglobin Concent 34.4, Red Cell Distribution Width 10.8L, Platelet Count 206, Mean Platelet Volume 7.4, Neutrophils (%) (Auto) 67.5, Lymphocytes (%) (Auto) 20.4, Monocytes (%) (Auto) 8.0, Eosinophils (%) (Auto) 3.5H, Basophils (%) (Auto ) 0.5, Lymphocytes [Pending], Sodium Level 139, Potassium Level 3.3L, Chloride Level 104, Carbon Dioxide Level 26, Anion Gap 9, Blood Urea Nitrogen 7, Creatinine 0.9, Estimat Glomerular Filtration Rate > 60, Glucose Level 106, Calcium Level 8.9, Total Bilirubin 0.4, Aspartate Amino Transf (AST/SGOT) 36, Alanine Aminotransferase (ALT/SGPT) 47, Alkaline Phosphatase 77, Total Protein 6.8, Albumin 2.8L, Globulin 4.0, Albumin/Globulin Ratio 0.7L, Percent CD3 Cells [Pending], Absolute CD3 Count [Pending], Percent CD4 Cells [Pending], Absolute CD4 Count [Pending], T-Lymphocyte CD4/CD8 Ratio [Pending], Percent CD8 Cells [ Pending], Absolute CD8 Count [Pending] Height (Feet): 6 Height (Inches): 0.00 Weight (Pounds): 184 Objective General Appearance: WD/WN, alert Neck: supple Cardiovascular: normal rate, regular rhythm Respiratory/Chest: chest wall non-tender, lungs clear, normal breath sounds, no respiratory distress Abdomen: normal bowel sounds, non tender, soft, no organomegaly Neurologic: disoriented, aphasia Lymphatic: normal anterior cervical (L), normal anterior cervical (R), normal posterior cervical (L), normal posterior cervical (R), normal submandibular (L) , normal submandibular (R), normal supraclavicular (L), normal supraclavicular ( R), normal axillary (L), normal axillary (R), normal inguinal (L), normal inguinal (R), normal other JOSE MIGUEL KEITH Jun 08, 2017 08:52
[2017-06-08] MEDS: Heparin 5000 units/ml inj SUBQ SCH ×2 (09:35→21:40)
[2017-06-08] MEDS: Sinemet 25/100 tab ORAL SCH ×3 (09:35→16:59)
[2017-06-08] MEDS: Metoprolol 25mg tab ORAL SCH ×4 (09:35→21:26)
[2017-06-08] MEDS: NEVIRAPINE 200 MG ORAL SCH ×3 (09:35→16:59)
[2017-06-08] MEDS: Augmentin 875mg Tab ORAL SCH ×3 (09:35→21:26)
[2017-06-08] MEDS: CRIXIVAN ORAL SCH ×3 (09:35→16:59)
[2017-06-08 12:29] VITALS: BP 156/100
[2017-06-08] MEDS ORDERED: Potassium Chloride 20 MEQ in NS 275 ML IV ONE (14:30)
[2017-06-08 16:00] VITALS: BP_SYST 144; BP_SYST 174; BP_DIAS 109; BP_DIAS 97
[2017-06-08 20:00] VITALS: BP 140/89
[2017-06-08] MEDS: Atorvastatin 80mg tab ORAL SCH ×2 (21:00→21:25)
[2017-06-09] VITALS: BP 145/78
[2017-06-09 05:02] VITALS: BP 137/75
[2017-06-09] MEDS: DIDANOSINE ORAL SCH ×2 (06:30→07:37)
[2017-06-09 07:43] VITALS: BP 105/79
[2017-06-09] MEDS ORDERED: AMOX TR-K CLV1 EAC2 ORAL (08:03)
[2017-06-09 08:36] LABS: ANION GAP 11 mmol/L (5-15); BLOOD UREA NITROGEN 6 mg/dL (7-18); CALCIUM 9.6 MG/DL (8.5-10.1); CARBON DIOXIDE 27 MMOL/L (21-32); CHLORIDE 107 MMOL/L (98-107); CREATININE 0.9 MG/DL (0.55-1.30); POTASSIUM 4.6 MMOL/L (3.5-5.1); SODIUM 145 MMOL/L (136-145)
[2017-06-09 09:00] VITALS: BP 105/79
[2017-06-09] MEDS: Metoprolol 25mg tab ORAL SCH (09:00)
[2017-06-09] MEDS: Sinemet 25/100 tab ORAL SCH (09:00)
[2017-06-09] MEDS: Heparin 5000 units/ml inj SUBQ SCH (09:00)
[2017-06-09] MEDS: CRIXIVAN ORAL SCH (09:00)
[2017-06-09] MEDS: NEVIRAPINE 200 MG ORAL SCH (09:00)
[2017-06-09] MEDS: Augmentin 875mg Tab ORAL SCH (09:00)
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
--- NOTE | 2017-06-09 12:00 | Progress Note ---
DATE: 06/08/2017 CARDIOLOGY PROGRESS NOTE SUBJECTIVE: The patient continues to be agitated, refusing medications and IV fluids at times. His oral intake is poor. The patient is still withdrawn and lethargic from baseline, according to his significant other. OBJECTIVE: VITAL SIGNS: Blood pressure ranging from 131/86 to 141/100, this morning 157/98; heart rate 80; and respiratory rate 18. HEENT: Dry mucous membranes. LUNGS: Clear. CARDIAC: Regular rhythm and rate. Normal S1 and S2 with a fourth heart sound. ABDOMEN: Soft. No guarding or rebound. EXTREMITIES: No edema. LABORATORY DATA: White count 9.6 and hemoglobin 15.2. Sodium 139, potassium 3.3, bicarbonate 26, BUN 7, and creatinine 0.9. Albumin 2.8. IMPRESSION: 1. Hyponatremia and dehydration with hypovolemia, now improved. 2. Hypokalemia, mild. 3. HIV AIDS. 4. Acute kidney injury, improved. 5. Moderate protein-calorie malnutrition. 6. Sinus tachycardia, resolving. PLAN: 1. Oral intake to be encouraged. 2. Skin care. 3. DVT prophylaxis. 4. Protein supplementation. 5. Discharge planning. Rob Villalpando M.D. DR: Rylan JOB#: [id number] CC:
--- NOTE | 2017-06-09 21:00 | Discharge Summary ---
DATE OF ADMISSION: 06/03/2017 DATE OF DISCHARGE: 06/09/2017 ADMISSION DIAGNOSES: 1. Sepsis. 2. Toxic metabolic encephalopathy. 3. History of human immunodeficiency virus. 4. History of hypertension. DISCHARGE DIAGNOSES: 1. Sepsis. 2. Toxic metabolic encephalopathy. 3. History of human immunodeficiency virus. 4. History of hypertension. HOSPITAL COURSE: The patient is a 62-year-old male, who came in with complaints of altered mental status. He was diagnosed with sepsis possibly secondary to aspiration pneumonia. The patient was pancultured. Cultures returned back negative. The patient was treated. ID consultation was obtained. The patient clinically improved. He had and dehydration, which also improved with hydration. He remained slightly more confused than baseline but this seemed to be improving according to the patient's significant other. On discharge, he was doing well. He will complete three days of additional oral antibiotic therapy. DISCHARGE MEDICATIONS: Please see discharge medication list for discharge medications. DIET: Pureed diet. ACTIVITY: Ad-rossi. Deandre Gonzalez M.D. DR: DARRYL JOB#: [id number] CC:
--- NOTE | 2017-06-10 00:45 | Progress Note ---
DATE: 06/09/2017 CARDIOLOGY PROGRESS NOTE SUBJECTIVE: The patient is eating better and tolerating more intake. No nausea or vomiting. OBJECTIVE: VITAL SIGNS: Blood pressure is 137/75, pulse 92, respiratory rate 19, and T-max 99 degrees. NECK: Supple. LUNGS: Clear. CARDIAC: Regular. Normal S1 and S2. ABDOMEN: Soft. EXTREMITIES: No edema. LABORATORY DATA: BUN 6, creatinine 0.9, potassium 4.6, and sodium 145. IMPRESSION: 1. Human-immunodeficiency virus/acquired immunodeficiency syndrome. 2. Dehydration. 3. Hypernatremia, improved. 4. Hypovolemia, resolved. 5. Acute on chronic renal failure, resolved. PLAN: 1. Stable for outpatient followup. 2. Transfer to correction facility. 3. Encourage continued oral intake especially free water. 4. Complete antibiotics. 5. DVT prophylaxis. 6. May need episodic IV therapy if electrolyte abnormalities are noted in the future. Rob Villalpando M.D. DR: Rylan JOB#: [id number] CC:
--- NOTE | 2017-06-10 00:45 | Progress Note ---
DATE: 06/09/2017 CARDIOLOGY PROGRESS NOTE SUBJECTIVE: The patient is eating better and tolerating more intake. No nausea or vomiting. OBJECTIVE: VITAL SIGNS: Blood pressure is 137/75, pulse 92, respiratory rate 19, and T-max 99 degrees. NECK: Supple. LUNGS: Clear. CARDIAC: Regular. Normal S1 and S2. ABDOMEN: Soft. EXTREMITIES: No edema. LABORATORY DATA: BUN 6, creatinine 0.9, potassium 4.6, and sodium 145. IMPRESSION: 1. Human-immunodeficiency virus/acquired immunodeficiency syndrome. 2. Dehydration. 3. Hypernatremia, improved. 4. Hypovolemia, resolved. 5. Acute on chronic renal failure, resolved. PLAN: 1. Stable for outpatient followup. 2. Transfer to snf facility. 3. Encourage continued oral intake especially free water. 4. Complete antibiotics. 5. DVT prophylaxis. 6. May need episodic IV therapy if electrolyte abnormalities are noted in the future. Rob Villalpando M.D. DR: Rylan JOB#: [id number] CC:
--- NOTE | 2017-06-10 00:45 | Progress Note ---
DATE: 06/09/2017 CARDIOLOGY PROGRESS NOTE SUBJECTIVE: The patient is eating better and tolerating more intake. No nausea or vomiting. OBJECTIVE: VITAL SIGNS: Blood pressure is 137/75, pulse 92, respiratory rate 19, and T-max 99 degrees. NECK: Supple. LUNGS: Clear. CARDIAC: Regular. Normal S1 and S2. ABDOMEN: Soft. EXTREMITIES: No edema. LABORATORY DATA: BUN 6, creatinine 0.9, potassium 4.6, and sodium 145. IMPRESSION: 1. Human-immunodeficiency virus/acquired immunodeficiency syndrome. 2. Dehydration. 3. Hypernatremia, improved. 4. Hypovolemia, resolved. 5. Acute on chronic renal failure, resolved. PLAN: 1. Stable for outpatient followup. 2. Transfer to senior care facility. 3. Encourage continued oral intake especially free water. 4. Complete antibiotics. 5. DVT prophylaxis. 6. May need episodic IV therapy if electrolyte abnormalities are noted in the future. Rob Villalpando M.D. DR: Rylan JOB#: [id number] CC:
--- NOTE | 2017-06-11 12:17 | Progress Note ---
DATE: 06/05/2017 Late entry for 06/05/2017. CARDIOLOGY PROGRESS NOTE SUBJECTIVE: The patient remains on IV fluids. Episodes of agitation and aggressive behavior noted by staff. The patient has very poor p.o. intake and has frequently refused his medications. He does one-to-one feedings with occasional compliance. OBJECTIVE: VITAL SIGNS: Afebrile, blood pressure 125/83, pulse 81, and respiratory rate 19. HEENT: Dry mucous membranes. NECK: Supple. LUNGS: Clear. CARDIAC: Regular. Normal S1, S2 with a fourth heart sound. ABDOMEN: Soft. EXTREMITIES: No edema. LABORATORY DATA: Sodium 147, potassium 3.1, chloride 113, bicarb 26, BUN 18, and creatinine 1.1. IMPRESSION: 1. Severe dehydration. 2. Hypernatremia. 3. Hypovolemia and shock recovering. 4. Hypokalemia. 5. Hyperchloremia. 6. Human immunodeficiency virus/acquired immune deficiency syndrome. 7. Delirium. 8. Moderate protein-calorie malnutrition. PLAN: 1. Continue hypotonic IV fluids. 2. Replace potassium. 3. Encourage oral intake. 4. DVT and stress ulcer prophylaxis. Rob Villalpando M.D. DR: GIO JOB#: [id number] CC:
--- NOTE | 2017-06-12 03:00 | Progress Note ---
DATE: 06/06/2017 CARDIOLOGY PROGRESS NOTE Late entry for 06/06/2017. SUBJECTIVE: The patient is refusing medications at times. His oral intake is poor. He is agitated and combative with staff. OBJECTIVE: VITAL SIGNS: Afebrile, blood pressure 143/89, pulse 76, and respirations 19. HEENT: Mucous membranes are dry. LUNGS: Bilateral breath sounds. HEART: Regular rhythm and rate. Normal S1 and S2 with a fourth heart sound. ABDOMEN: Soft and nontender. EXTREMITIES: No edema. LABORATORY DATA: Sodium 146, potassium 3.7, bicarbonate 27, BUN 11, and creatinine 1.0. White count 9.6 and hemoglobin 15.2. IMPRESSION: 1. Dehydration. 2. Hypernatremia. 3. Acute on chronic renal failure due to acute tubular necrosis. 4. Hypovolemia. 5. Anorexia. 6. Moderate to severe protein-calorie malnutrition. 7. Human immunodeficiency virus and acquired immune deficiency syndrome. 8. Delirium. 9. Metabolic encephalopathy. PLAN: 1. Continue IV fluid. 2. Hydration with hypotonic fluids. 3. Encourage oral intake. 4. DVT and stress ulcer prophylaxes. 5. Considering antidepressants. Rob Villalpando M.D. DR: ATILIO JOB#: [id number] CC:
--- NOTE | 2017-06-12 03:00 | Progress Note ---
DATE: 06/07/2017 CARDIOLOGY PROGRESS NOTE Late entry for 06/07/2017. SUBJECTIVE: The patient remains confused with altered mentation from baseline. This is based on the input from his significant other. The patient had a CAT scan of the brain that revealed no acute process. The patient continues to refuse oral intake as well as medications. His appetite is very poor. OBJECTIVE: VITAL SIGNS: Blood pressure 113/85, pulse 89, respirations 17, and afebrile. HEENT: Temporal wasting. Pale conjunctivae. Oropharynx clear. Mucous membranes dry. NECK: Supple. LUNGS: Clear. CARDIAC: Regular. Normal S1 and S2 with a fourth heart sound. No edema. ABDOMEN: Soft and nontender. IMPRESSION: 1. Dehydration. 2. Hypernatremia. 3. Hypovolemia. 4. Acute on chronic kidney injury due to acute tubular necrosis. PLAN: 1. Continue hydration. 2. Encourage oral intake. 3. Antidepressants being considered. 4. No additional cardiovascular medications presently required. 5. We will follow. Rob Villalpando M.D. DR: ATILIO JOB#: [id number] CC:
== END 2017-06-09 12:01 | disposition short-term general hospital (02) | DRG 974 ==
LOC: EDBD 23:36 → EMR 23:48 → 3E 06-03 02:17 → EDBEDREQ 06-03 02:35 → 3E 06-03 03:43
DX: A41.9 Sepsis, unspecified organism (principal); B20 Human immunodeficiency virus [HIV] disease; J69.0 Pneumonitis due to inhalation of food and vomit; G92 Toxic encephalopathy; E44.0 Moderate protein-calorie malnutrition; M62.82 Rhabdomyolysis; G20 Parkinson's disease; E87.1 Hypo-osmolality and hyponatremia; E44.1 Mild protein-calorie malnutrition; I11.9 Hypertensive heart disease without heart failure; D72.829 Elevated white blood cell count, unspecified; E11.9 Type 2 diabetes mellitus without complications; I10 Essential (primary) hypertension; E86.0 Dehydration; Z68.25 Body mass index [BMI] 25.0-25.9, adult; Z66 Do not resuscitate; F01.50 Vascular dementia, unspecified severity, without behavioral disturbance, psychotic disturbance, mood disturbance, and anxiety; F29 Unspecified psychosis not due to a substance or known physiological condition; E87.8 Other disorders of electrolyte and fluid balance, not elsewhere classified; R00.0 Tachycardia, unspecified
CPT/HCPCS: 36415; 70450; 71010; 74230; 80048; 80053; 81003; 82550; 82607; 82746; 83605; 83690; 83735; 83880; 84443; 84484; 85025; 85610; 85730; 86360; 87040; 87081; 87324; 93005; 93970; 99285